=== PATIENT | female | born 1975 | race Caucasian/White ===

== ENCOUNTER 2016-12-18 13:46 | Emergency (ER) | payer BC ==
[2016-12-18 13:53] VITALS: BP 132/65
--- NOTE | 2016-12-18 14:09 | ER Document Report ---
ED Medical Screen (RME) - General Stated Complaint: RIGHT KNEE PAIN Notes: patient was getting out of her car four days ago with sudden onset knee pain, admits to a twisting motion getting out of her car. admits to knee swelling. hurts to walk on it, difficulty flexing past ninety degrees I have greeted and performed a rapid initial assessment of this patient. A comprehensive ED assessment and evaluation of the patient, analysis of test results and completion of the medical decision making process will be conducted by additional ED providers. TRAVEL OUTSIDE OF THE [place] IN LAST 30 DAYS: No - Related Data Allergies/Adverse Reactions: No Known Allergies Allergy (Verified 12/18/16 14:05) Past Medical History Neurological Medical History: Reports: Hx Migraine Renal/ Medical History: Reports: Hx Ovarian Cysts - fibroids Musculoskeltal Medical History: Denies Hx Arthritis, Reports Hx Musculoskeletal Deformity, Reports Hx Musculoskeletal Trauma - right shoulder injury with bursitis and tennis elbow Past Surgical History: Reports: Hx Gynecologic Surgery - uterine fibroids, Hx Oral Surgery, Hx Tonsillectomy - Immunizations Immunizations up to date: No Hx Diphtheria, Pertussis, Tetanus Vaccination: No Physical Exam - Vital signs Vitals: Temp Pulse Resp BP Pulse Ox 98.2 F 69 18 132/65 H 99 12/18/16 13:52 12/18/16 13:52 12/18/16 13:52 12/18/16 13:52 12/18/16 13:52 Course - Vital Signs Vital signs: Temp Pulse Resp BP Pulse Ox 98.2 F 69 18 132/65 H 99 12/18/16 13:52 12/18/16 13:52 12/18/16 13:52 12/18/16 13:52 12/18/16 13:52
[2016-12-18] MEDS ORDERED: IBUPROFEN 800 MG TABLET PO ONE (14:10)
--- NOTE | 2016-12-18 14:37 | ER Document Report ---
ED Extremity Problem, Lower - General Time seen by provider: 14:40 Mode of Arrival: Ambulatory Information source: Patient TRAVEL OUTSIDE OF THE [place] IN LAST 30 DAYS: No - HPI Patient complains to provider of: Injury, Pain Location: Knee - right Occurred: Other - see HPI notes <ORAL CADE - Last Filed: 12/18/16 14:58> <LISACHACHA ANN - Last Filed: 12/18/16 19:22> - General Chief Complaint: Knee Pain Stated Complaint: RIGHT KNEE PAIN Notes: Patient is a 41-year-old female presenting to emergency department with complaints of right knee pain. Patient states that she was getting out of the passenger side of her vehicle when she injured her right knee. Patient states she is unsure what happened that she possibly twisted her knee the right leg. Patient states that her pain is on the outer side of her knee and that she feels pressure going down her leg when she is walking. Patient has no known allergies. (ORAL CADE) - Related Data Allergies/Adverse Reactions: No Known Allergies Allergy (Verified 12/18/16 14:05) Past Medical History - General Information source: Patient - Social History Smoking Status: Current Every Day Smoker Cigarette use (# per day): No Chew tobacco use (# tins/day): No Frequency of alcohol use: None Drug Abuse: None Family History: Arthritis, CAD, DM, Hyperlipidemia, Hypertension Patient has suicidal ideation: No Patient has homicidal ideation: No Neurological Medical History: Reports: Hx Migraine Renal/ Medical History: Reports: Hx Ovarian Cysts - fibroids Musculoskeltal Medical History: Reports Hx Musculoskeletal Deformity, Reports Hx Musculoskeletal Trauma - right shoulder injury with bursitis and tennis elbow Past Surgical History: Reports: Hx Gynecologic Surgery - uterine fibroids, Hx Oral Surgery, Hx Tonsillectomy - Immunizations Immunizations up to date: No Hx Diphtheria, Pertussis, Tetanus Vaccination: No <ORAL CADE - Last Filed: 12/18/16 14:58> Review of Systems - Review of Systems Constitutional: No symptoms reported EENT: No symptoms reported Cardiovascular: No symptoms reported Respiratory: No symptoms reported Gastrointestinal: No symptoms reported Genitourinary: No symptoms reported Female Genitourinary: No symptoms reported Musculoskeletal: See HPI Skin: No symptoms reported Hematologic/Lymphatic: No symptoms reported Neurological/Psychological: No symptoms reported -: Yes All other systems reviewed and negative <ORAL CADE - Last Filed: 12/18/16 14:58> Physical Exam - Vital signs Interpretation: Normal - General General appearance: Appears well, Alert In distress: Mild - HEENT Head: Normocephalic, Atraumatic Eyes: Normal Pupils: PERRL Mucous membranes: Moist - Respiratory Respiratory status: No respiratory distress - Cardiovascular Rhythm: Regular - Abdominal Inspection: Normal - Back Back: Normal, Nontender - Extremities General upper extremity: Normal inspection, Normal ROM, Normal strength Knee: Tender - tenderness to palpation at the insertion of the vastus lateralis distally; patient has good range of motion, sensation, and strength - Neurological Neuro grossly intact: Yes Cognition: Normal Orientation: AAOx4 [place] Coma Scale Eye Opening: Spontaneous Eric Coma Scale Verbal: Oriented Eric Coma Scale Motor: Obeys Commands [place] Coma Scale Total: 15 Speech: Normal - Psychological Associated symptoms: Normal affect, Normal mood - Skin Skin Temperature: Warm Skin Moisture: Dry <ORAL CADE - Last Filed: 12/18/16 14:58> <CHACHA GONZALEZ - Last Filed: 12/18/16 19:22> - Vital signs Vitals: Temp Pulse Resp BP Pulse Ox 98.2 F 69 18 132/65 H 99 12/18/16 13:52 12/18/16 13:52 12/18/16 13:52 12/18/16 13:52 12/18/16 13:52 (ORAL CADE) (CHACHA GONZALEZ) Course <ORAL CADE - Last Filed: 12/18/16 14:58> - Diagnostic Test Radiology reviewed: Reports reviewed <CHACHA GONZALEZ - Last Filed: 12/18/16 19:22> - Re-evaluation Re-evalutation: 12/18/16 No acute findings on x-ray. Patient is able to ambulate. She is tender to palpation over her lateral vastus insertion. Full range of motion and strength. No trauma. No other complaints. Patient will be discharged home with an Deion wrap that she can apply herself. She has crutches at home. She does not want anything stronger than ibuprofen or naproxen for pain. Stable for discharge. Neurovascularly intact. Return if any worsening or concerning symptoms. (CHACHA GONZALEZ) - Vital Signs Vital signs: Temp Pulse Resp BP Pulse Ox 98.2 F 69 18 132/65 H 99 12/18/16 13:52 12/18/16 13:52 12/18/16 13:52 12/18/16 13:52 12/18/16 13:52 (ORAL CADE) (CHACHA GONZALEZ) Discharge <ORAL CADE - Last Filed: 12/18/16 14:58> <CHACHA GONZALEZ - Last Filed: 12/18/16 19:22> - Discharge Clinical Impression: Strain of right knee Qualifiers: Encounter type: initial encounter Qualified Code(s): S86.911A - Strain of unspecified muscle(s) and tendon(s) at lower leg level, right leg, initial encounter Condition: Stable Disposition: HOME, SELF-CARE Instructions: Sprained Knee ([facility]), Use of Crutches ([facility]) Prescriptions: Naproxen [Naprosyn 250 mg Tablet] 250 mg PO DAILY PRN #20 tablet PRN Reason: Forms: Return to Work Scribe Attestation: 12/18/16 19:22 I personally performed the services described in the documentation, reviewed and edited the documentation which was dictated to the scribe in my presence, and it accurately records my words and actions. (CHACHA GONZALEZ) Scribe Documentation - Scribe Written by Scribe:: Oral Cade 15:00 12/18/16 acting as scribe for :: Lisa <ORAL CADE - Last Filed: 12/18/16 14:58>
== END 2016-12-18 15:48 | disposition home or self-care (01) ==
LOC: ER 13:46
DX: S86.911A Strain of unspecified muscle(s) and tendon(s) at lower leg level, right leg, initial encounter (principal); M25.561 Pain in right knee; X58.XXXA Exposure to other specified factors, initial encounter; Y93.89 Activity, other specified; F17.200 Nicotine dependence, unspecified, uncomplicated
CPT/HCPCS: 99283

== ENCOUNTER 2017-08-10 12:41 | Emergency (ER) | payer BC ==
--- NOTE | 2017-08-10 13:23 | ER Document Report ---
ED Medical Screen (RME) - General Chief Complaint: Abdominal Pain Stated Complaint: ABDOMINAL PAIN,NAUSEA,VAGINAL DISCHARGE Time Seen by Provider: 08/10/17 13:22 Notes: Patient is complaining of abdominal pain in the center of her abdomen that started yesterday. It is worse today. She is also noted a light pink discharge that started last night and is worse today. Patient says that she has had similar symptoms previously secondary to uterine fibroids. She has had 3 surgical procedures to remove fibroids and is told that she has other fibroids in her uterus. She has been nauseated but not vomiting. No diarrhea. No UTI symptoms. No fever. TRAVEL OUTSIDE OF THE [place] IN LAST 30 DAYS: No - Related Data Allergies/Adverse Reactions: No Known Allergies Allergy (Verified 12/18/16 14:05) Past Medical History - Social History Chew tobacco use (# tins/day): No Frequency of alcohol use: None Drug Abuse: None Neurological Medical History: Reports: Hx Migraine Renal/ Medical History: Reports: Hx Ovarian Cysts - fibroids. Denies: Hx Peritoneal Dialysis Musculoskeltal Medical History: Denies Hx Arthritis, Reports Hx Musculoskeletal Deformity, Reports Hx Musculoskeletal Trauma - right shoulder injury with bursitis and tennis elbow Past Surgical History: Reports: Hx Gynecologic Surgery - uterine fibroids, Hx Oral Surgery, Hx Tonsillectomy - Immunizations Immunizations up to date: No Hx Diphtheria, Pertussis, Tetanus Vaccination: No History of Influenza Vaccine for 08/2017 - 01/2018 Season: No Physical Exam - Vital signs Vitals: Pulse 16 L 08/10/17 12:43 Course - Vital Signs Vital signs: Temp Pulse Resp BP Pulse Ox 98.6 F 75 16 134/82 H 99 08/10/17 12:44 08/10/17 12:44 08/10/17 12:44 08/10/17 12:44 08/10/17 12:44
[2017-08-10 14:01] LABS: ABSOLUTE EOSINOPHILS # (AUTO) 0.2 10^3/uL (0.0-0.6); ABSOLUTE MONOCYTES (AUTO) 0.3 10^3/uL (0.1-1.4); ABSOLUTE NEUT (AUTO) 4.7 10^3/uL (1.7-8.2); BASOPHILS % (AUTO) 0.5 % (0-2); EOSINOPHILS % (AUTO) 2.6 % (0-6); HEMATOCRIT 36.4 % (36.0-47.0); HEMOGLOBIN 12.1 g/dL (12.0-15.5); HGB HCT DIFFERENCE -0.1; LYMPHOCYTES % (AUTO) 27.2 % (13-45); MEAN CORPUSCULAR HEMOGLOBIN 21.5 pg (27.0-33.4); MEAN CORPUSCULAR HGB CONC 33.2 g/dL (32.0-36.0); MEAN CORPUSCULAR VOLUME 65 fl (80-97); MONOCYTES % (AUTO) 4.8 % (3-13); RED BLOOD COUNT 5.61 10^6/uL (3.72-5.28); RED CELL DISTRIBUTION WIDTH 15.2 % (11.5-14.0); SEGMENTED NEUTROPHILS % (AUTO) 64.9 % (42-78); WHITE BLOOD COUNT 7.2 10^3/uL (4.0-10.5)
--- NOTE | 2017-08-10 14:07 | ER Document Report ---
ED GI/ - General Chief Complaint: Abdominal Pain Stated Complaint: ABDOMINAL PAIN,NAUSEA,VAGINAL DISCHARGE Time Seen by Provider: 08/10/17 13:22 Mode of Arrival: Ambulatory Information source: Patient TRAVEL OUTSIDE OF THE [place] IN LAST 30 DAYS: No - HPI Patient complains to provider of: Abdominal pain Onset: Yesterday - AFTERNOON Quality of pain: Other - "HURTS" Severity at maximum: Moderate Severity in ED: Mild Context: Other - KNOWN H/O FIBROIDS. denies: Bad food, Lifting, Out of the country travel, , Recent trauma Location: Other - MID-ABDOMEN, SYMMETRICAL Vaginal bleeding (Compared to normal period): Spotting - PINKISH D/C Menstrual period history: Irregular Sexual history: Active Associated symptoms: None Exacerbated by: Denies Relieved by: Denies Similar symptoms previously: Yes - FIBROIDS?? Recently seen / treated by doctor: No - Related Data Allergies/Adverse Reactions: No Known Allergies Allergy (Verified 12/18/16 14:05) Past Medical History - General Information source: Patient - Social History Smoking Status: Current Every Day Smoker Chew tobacco use (# tins/day): No Frequency of alcohol use: None Drug Abuse: None Family History: Arthritis, CAD, DM, Hyperlipidemia, Hypertension Patient has suicidal ideation: No Patient has homicidal ideation: No - Past Medical History Cardiac Medical History: Reports: None Pulmonary Medical History: Reports: None EENT Medical History: Reports: None Neurological Medical History: Reports: Hx Migraine Endocrine Medical History: Reports: None Renal/ Medical History: Reports: Hx Ovarian Cysts - fibroids. Denies: Hx Peritoneal Dialysis Malignancy Medical History: Reports: None GI Medical History: Reports: None Musculoskeltal Medical History: Denies Hx Arthritis, Reports Hx Musculoskeletal Deformity, Reports Hx Musculoskeletal Trauma - right shoulder injury with bursitis and tennis elbow Psychiatric Medical History: Reports: None Traumatic Medical History: Reports: None Past Surgical History: Reports: Hx Gynecologic Surgery - uterine fibroids, Hx Oral Surgery, Hx Tonsillectomy - Immunizations Immunizations up to date: No Hx Diphtheria, Pertussis, Tetanus Vaccination: No Review of Systems - Review of Systems Constitutional: No symptoms reported. denies: Chills, Fever EENT: No symptoms reported Cardiovascular: No symptoms reported Respiratory: No symptoms reported Gastrointestinal: Nausea Genitourinary: No symptoms reported Female Genitourinary: See HPI Musculoskeletal: No symptoms reported Skin: No symptoms reported Neurological/Psychological: No symptoms reported Physical Exam - Vital signs Vitals: Pulse 16 L 08/10/17 12:43 Interpretation: Normal. No: Hypotensive, Tachycardic, Tachypneic - General General appearance: Appears well, Alert In distress: None - HEENT Head: Normocephalic Eyes: Normal Conjunctiva: Normal Ears: Normal Nasal: Normal Mouth/Lips: Caries Mucous membranes: Normal Pharynx: Normal Neck: Normal - Respiratory Respiratory status: No respiratory distress - Cardiovascular Rhythm: Regular - Abdominal Inspection: Normal Distension: No distension Bowel sounds: Normal Tenderness: Tender - SLIGHT, WILLA-UMBILICAL - Genitourinary External exam: Normal Speculum exam: Normal, Cervix closed Vaginal bleeding: None Bimanuel exam: Cervical motion tender - MILDLY - Extremities General upper extremity: Normal inspection General lower extremity: Normal inspection - Neurological Neuro grossly intact: Yes Cognition: Normal Orientation: AAOx4 - Psychological Associated symptoms: Normal affect, Normal mood - Skin Skin Temperature: Warm Skin Moisture: Dry Skin Color: Normal Skin Turgor: Elastic Course - Vital Signs Vital signs: Temp Pulse Resp BP Pulse Ox 98.6 F 75 16 134/82 H 99 08/10/17 12:44 08/10/17 12:44 08/10/17 12:44 08/10/17 12:44 08/10/17 12:44 - Laboratory Result Diagrams: 08/10/17 13:40 08/10/17 13:40 Laboratory results interpreted by me: 08/10/17 08/10/17 13:30 13:40 RBC 5.61 H MCV 65 L MCH 21.5 L RDW 15.2 H Urine Blood SMALL H Discharge - Discharge Clinical Impression: Abdominal pain Qualifiers: Abdominal location: periumbilical Qualified Code(s): R10.33 - Periumbilical pain Uterine fibroid Qualifiers: Uterine leiomyoma location: unspecified location Qualified Code(s): D25.9 - Leiomyoma of uterus, unspecified Condition: Stable Disposition: HOME, SELF-CARE Instructions: Abdominal Pain ([facility]), Oral Narcotic Medication ([facility]) Additional Instructions: YOUR PAIN IS MOST LIKELY RELATED TO YOUR FIBROID TUMORS IN THE UTERUS. REST, DRINK PLENTY OF FLUIDS. YOU MAY TAKE NORCO FOR PAIN CONTROL IF NEEDED (OR TYLENOL FOR LESS SEVERE PAIN). FOLLOW UP WITH YOUR PRIMARY CARE PROVIDER OR FELT CARBON[facility]ER IF NOT IMPROVED IN 48- 72 HOURS. Prescriptions: Hydrocodone/Acetaminophen [[place] 5-325 mg Tablet] 1 tab PO Q4HP PRN #14 tablet PRN Reason: For Pain
[2017-08-10 14:10] LABS: APPEARANCE,URINE SLIGHTLY-CLOUDY; BILIRUBIN,URINE NEGATIVE (NEGATIVE); GLUCOSE, URINE NEGATIVE (NEGATIVE); KETONES,URINE NEGATIVE (NEGATIVE); LEUKOCYTE ESTERASE,URINE NEGATIVE (NEGATIVE); NITRITE,URINE NEGATIVE (NEGATIVE); PROTEIN,URINE NEGATIVE (NEGATIVE); URINE SPECIFIC GRAVITY 1.017; UROBILINOGEN,URINE NEGATIVE mg/dL (<2.0)
[2017-08-10 14:22] LABS: ALANINE AMINOTRANSFERASE 48 U/L (9-52); ALBUMIN 4.8 g/dL (3.5-5.0); ALKALINE PHOSPHATASE 60 U/L (38-126); ANION GAP 10 (5-19); ASPARTATE AMINO TRANSFERASE 25 U/L (14-36); BILIRUBIN,DIRECT 0.4 mg/dL (0.0-0.4); BLOOD UREA NITROGEN 13 mg/dL (7-20); CALCIUM 9.9 mg/dL (8.4-10.2); CARBON DIOXIDE 26 mmol/L (22-30); CHLORIDE 104 mmol/L (98-107); CREATININE RESULT 0.77 mg/dL (0.52-1.25); GLUCOSE 84 mg/dL (75-110); LIPASE 56.3 U/L (23-300); POTASSIUM 4.2 mmol/L (3.6-5.0); SODIUM 140.4 mmol/L (137-145); TOTAL PROTEIN 7.4 g/dL (6.3-8.2)
[2017-08-10 14:38] LABS: OVALOCYTES SLIGHT; POLYCHROMASIA SLIGHT; TEAR DROP CELLS SLIGHT
[2017-08-10 14:39] LABS: ANISOCYTOSIS SLIGHT; MICROCYTOSIS 3+
[2017-08-10 17:58] LABS: CHLAM PCR NOT DETECTED (NOT DETECT)
[2017-08-10 19:03] VITALS: BP 121/70
== END 2017-08-10 19:03 | disposition home or self-care (01) ==
LOC: ER 12:41
DX: D25.9 Leiomyoma of uterus, unspecified (principal); R10.33 Periumbilical pain; R11.0 Nausea; K02.9 Dental caries, unspecified; F17.200 Nicotine dependence, unspecified, uncomplicated; Z98.890 Other specified postprocedural states
CPT/HCPCS: 36415; 80053; 81001; 83690; 84702; 85025; 87210; 87491; 87591; 99284

== ENCOUNTER → 2017-10-20 | Outpatient (CLI) | payer BC ==
--- NOTE | 2017-10-20 14:37 | RADIOLOGY REPORT (SQ) ---
EXAM DESCRIPTION: CT ABD/PELVIS WITH IV ORAL COMPLETED DATE/TIME: 10/20/2017 1:51 pm REASON FOR STUDY: UNSPECIFIED OVARIAN CYST, LT SIDE (N83.202) N83.202 UNSPECIFIED OVARIAN CYST, LEF T SIDE COMPARISON: 04/21/2013 TECHNIQUE: CT scan of the abdomen and pelvis performed using helical scanning technique with dynamic intravenous contrast injection. No oral contrast. Images reviewed with lung, soft tissue, and bone windows. Reconstructed coronal and sagittal MPR images reviewed. Delayed images for evaluation of the urinary system also acquired. All images stored on PACS. All CT scanners at this facility use dose modulation, iterative reconstruction, and/or weight based d osing when appropriate to reduce radiation dose to as low as reasonably achievable (ALARA). [facility]: Dose Right [facility]: CareDose [facility]: Dose Right [facility]: Teradose 4D [facility]: Artillery CONTRAST TYPE AND DOSE: contrast/concentration: Isovue 370.00 mg/ml; Total Contrast Delivered: 81.0 ml; Total Saline Delivered: 68.0 ml RENAL FUNCTION: None required. The patient is less than 50 years old. RADIATION DOSE: CT Rad equipment meets quality standard of care and radiation dose reduction techniq ues were employed. CTDIvol: 7.5 - 8.6 mGy. DLP: 861 mGy-cm.. LIMITATIONS: None. FINDINGS: LOWER CHEST: No significant findings. No nodules or infiltrates. LIVER: Normal size. No masses. No dilated ducts. SPLEEN: Normal size. No focal lesions. PANCREAS: No masses. No significant calcifications. No adjacent inflammation or peripancreatic fluid collections. Pancreatic duct not dilated. GALLBLADDER: No identified stones by CT criteria. No inflammatory changes to suggest cholecystitis. ADRENAL GLANDS: No significant masses or asymmetry. RIGHT KIDNEY AND URETER: No solid masses. No significant calcifications. No hydronephrosis or hyd roureter. LEFT KIDNEY AND URETER: No solid masses. No significant calcifications. No hydronephrosis or hydr oureter. AORTA AND VESSELS: No aneurysm. No dissection. Renal arteries, SMA, celiac without stenosis. RETROPERITONEUM: No retroperitoneal adenopathy, hemorrhage or masses. BOWEL AND PERITONEAL CAVITY: No masses or inflammatory changes. No free fluid or peritoneal masses. APPENDIX: Normal. PELVIS: Uterine fibroids, stable. 2 cm cyst right ovary. ABDOMINAL WALL: No masses. No hernias. BONES: No significant or acute findings. OTHER: No other significant finding. IMPRESSION: Uterine fibroids. No significant change. No acute findings. TECHNICAL DOCUMENTATION: JOB ID: [id number] Quality ID # [id number]: Final reports with documentation of one or more dose reduction techniques (e.g., Au tomated exposure control, adjustment of the mA and/or kV according to patient size, use of iterative reconstruction technique) 2010 [employer]- All Rights Reserved
== END ==
LOC: RAD 13:17
PROVIDERS: ATTEND Specialist
DX: N83.202 Unspecified ovarian cyst, left side (principal); N83.201 Unspecified ovarian cyst, right side; D25.9 Leiomyoma of uterus, unspecified
CPT/HCPCS: 74177

== ENCOUNTER 2017-12-29 05:19 | Day surgery (SDC) | payer BC ==
[2017-12-27 11:21] LABS: APPEARANCE,URINE CLEAR; BILIRUBIN,URINE NEGATIVE (NEGATIVE); COLOR,URINE STRAW; GLUCOSE, URINE NEGATIVE (NEGATIVE); KETONES,URINE NEGATIVE (NEGATIVE); LEUKOCYTE ESTERASE,URINE NEGATIVE (NEGATIVE); NITRITE,URINE NEGATIVE (NEGATIVE); PROTEIN,URINE NEGATIVE (NEGATIVE); URINE SPECIFIC GRAVITY 1.004; UROBILINOGEN,URINE NEGATIVE mg/dL (<2.0)
[2017-12-27 11:53] LABS: HEMATOCRIT 38.1 % (36.0-47.0); MEAN CORPUSCULAR HEMOGLOBIN 20.5 pg (27.0-33.4); MEAN CORPUSCULAR HGB CONC 31.5 g/dL (32.0-36.0); MEAN CORPUSCULAR VOLUME 65 fl (80-97); PLATELET COUNT 388 10^3/uL (150-450); RED BLOOD COUNT 5.84 10^6/uL (3.72-5.28); RED CELL DISTRIBUTION WIDTH 14.5 % (11.5-14.0); WHITE BLOOD COUNT 7.4 10^3/uL (4.0-10.5)
[2017-12-27 12:10] LABS: ANION GAP 12 (5-19); BLOOD UREA NITROGEN 13 mg/dL (7-20); CALCIUM 9.7 mg/dL (8.4-10.2); CARBON DIOXIDE 26 mmol/L (22-30); CHLORIDE 105 mmol/L (98-107); GLUCOSE 79 mg/dL (75-110); POTASSIUM 4.9 mmol/L (3.6-5.0); SODIUM 142.5 mmol/L (137-145)
--- NOTE | 2017-12-27 13:36 | EKG REPORT ---
SEVERITY:- NORMAL ECG - SINUS RHYTHM : Confirmed by: Reynold Guzmán MD 27-Dec-2017 13:35:46
--- NOTE | 2017-12-27 15:52 | RADIOLOGY REPORT (SQ) ---
EXAM DESCRIPTION: CHEST PA/LATERAL COMPLETED DATE/TIME: 12/27/2017 12:17 pm REASON FOR STUDY: PRE OP COMPARISON: 07/16/2016 EXAM PARAMETERS: NUMBER OF VIEWS: two views TECHNIQUE: Digital Frontal and Lateral radiographic views of the chest acquired. RADIATION DOSE: NA LIMITATIONS: none FINDINGS: LUNGS AND PLEURA: No opacities, masses or pneumothorax. No pleural effusion. MEDIASTINUM AND HILAR STRUCTURES: No masses or contour abnormalities. HEART AND VASCULAR STRUCTURES: Heart normal size. No evidence for failure. BONES: No acute findings. HARDWARE: None in the chest. OTHER: No other significant finding. IMPRESSION: NO SIGNIFICANT RADIOGRAPHIC FINDING IN THE CHEST. TECHNICAL DOCUMENTATION: JOB ID: [id number] [employer]- All Rights Reserved
[~2017-12-29 05:19] MED LIST: CEFAZOLIN 1 GM/D5W RTU 1 GM/50 ML RTUPB IV PRN; LACTATED RINGERS 1000 ML IV PRN; LIDOCAINE 0.5% INJ-PF (5 MG/ML) 50 ML SDV SUBCUT PRN
[2017-12-29] MEDS ORDERED: ALBUTEROL SULFATE 0.083% NEB 2.5 MG/3 ML AMPUL NEB ONE (06:14)
[2017-12-29] MEDS ORDERED: MIDAZOLAM 2 MG/2 ML INJ ONE (07:08)
[2017-12-29] MEDS ORDERED: FENTANYL CITRATE INJ/PF 250 MCG/5 ML AMPULE ONE (07:09)
[2017-12-29] MEDS ORDERED: ACETAMINOPHEN 100 ML IV ONE (07:09)
[2017-12-29] MEDS ORDERED: PROPOFOL INJ 200 MG/20 ML VIAL IV ONE (07:09)
[2017-12-29] MEDS ORDERED: LIDOCAINE 1%/EPINEPHRINE INJ 20 ML VIAL ONE (07:19)
[2017-12-29] MEDS ORDERED: MORPHINE SULFATE 10 MG/ML INJ IV PRN (08:01)
[2017-12-29] MEDS ORDERED: DIPHENHYDRAMINE HCL 50 MG/ML VIAL IV PRN (08:01)
[2017-12-29] MEDS ORDERED: MEPERIDINE HCL/PF INJ 25 MG/1 ML DISP.SYRIN IV PRN (08:01)
[2017-12-29] MEDS ORDERED: FENTANYL CITRATE INJ/PF 100 MCG/2 ML AMPUL IV PRN ×3 (08:01)
[2017-12-29] MEDS ORDERED: OXYCODONE-ACETAMINOPHEN 5-325 MG TABLET PO PRN ×3 (08:01→09:29)
[2017-12-29] MEDS ORDERED: PROMETHAZINE HCL INJ 25 MG/1 ML VIAL IV PRN ×2 (08:01)
[2017-12-29] MEDS ORDERED: MORPHINE SULFATE 10 MG/ML INJ INJ PRN ×2 (09:30→09:31)
[2017-12-29] MEDS ORDERED: MORPHINE SULFATE 10 MG/ML INJ IM PRN (09:31)
[2017-12-29] MEDS ORDERED: PROMETHAZINE HCL INJ 25 MG/1 ML VIAL IM PRN (09:32)
--- NOTE | 2017-12-29 10:17 | RADIOLOGY REPORT (SQ) ---
EXAM DESCRIPTION: CHEST SINGLE VIEW COMPLETED DATE/TIME: 12/29/2017 9:29 am REASON FOR STUDY: RULE OUT FOREIGN BODY COMPARISON: Two-view chest 12/27/2017 EXAM PARAMETERS: NUMBER OF VIEWS: One view. TECHNIQUE: Single frontal radiographic view of the chest acquired. RADIATION DOSE: NA LIMITATIONS: None. FINDINGS: LUNGS AND PLEURA: Left retrocardiac atelectasis. Lungs otherwise well inflated and grossl y clear. No pleural effusion. No pneumothorax. MEDIASTINUM AND HILAR STRUCTURES: No masses. Contour normal. HEART AND VASCULAR STRUCTURES: Heart normal in size. Normal vasculature. BONES: No acute findings. HARDWARE: Endotracheal tube tip 3 to 4 cm above the jaylan. OTHER: Diffuse gaseous distention of the stomach. No aspirated tooth fragment is seen over the central airways. IMPRESSION: No aspirated tooth fragment is seen over the central airways in the field of view Endotracheal tube tip in the midtrachea Diffuse gaseous distention of the stomach Left retrocardiac air bronchograms from atelectasis. Pneumonia could not entirely be excluded TECHNICAL DOCUMENTATION: JOB ID: [id number]- All Rights Reserved
[2017-12-29] MEDS: CEFAZOLIN 1 GM/D5W RTU 1 GM/50 ML RTUPB IV SCH ×2 (14:10→17:57)
[2017-12-29] MEDS: IBUPROFEN 800 MG TABLET PO SCH ×2 (14:11→22:51)
[2017-12-29] MEDS ORDERED: SUCCINYLCHOLINE CHLORIDE INJ 200 MG/10 ML VIAL ONE (15:47)
[2017-12-29] MEDS ORDERED: KETOROLAC TROMETHAMINE 60 MG/2 ML SDV ONE (15:47)
[2017-12-29] MEDS ORDERED: LIDOCAINE 2% INJ-PF (20 MG/ML) 2 ML AMPUL ONE (15:47)
[2017-12-29] MEDS ORDERED: ROCURONIUM BROMIDE INJ 50 MG/5 ML VIAL IV ONE (15:47)
[2017-12-29] MEDS ORDERED: DEXAMETHASONE SOD PHOSPHATE INJ 4 MG/1 ML VIAL ONE (15:47)
[2017-12-29] MEDS ORDERED: ONDANSETRON HCL INJ/PF 4 MG/2 ML SDV ONE (15:47)
--- NOTE | 2017-12-29 15:57 | OPERATIVE REPORT E ---
Operative Report NAME: MINNIE FAIRCHILD : 1975 AGE: 42Y DATE OF SURGERY: 12/29/2017 ROOM: 218 PREOPERATIVE DIAGNOSIS: Uterine leiomyoma. POSTOPERATIVE DIAGNOSIS: Uterine leiomyoma. OPERATION: Total vaginal hysterectomy with Gay culdoplasty. SURGEON: HOMERO CORNELL M.D. COMPLICATIONS: None. ANESTHESIA: General endotracheal. FINDINGS: Multi-fibroid uterus. Ovaries were palpated out of the operative field was normal. No enterocele formation was appreciated. INDICATIONS FOR PROCEDURE: The patient had symptomatic uterine leiomyoma as well as abnormal uterine bleeding unresponsive to usual outpatient management and desired attempt at definitive therapy. vaginal approach. The laparoscopic instrumentation was available should it need to be converted or assisted. The usual risks of bleeding, infection, anesthesia, damage to organs or tissue were discussed and the patient understood. PROCEDURE: The patient was taken to the operating room and placed in modified lithotomy position after adequate anesthesia was ascertained, prepped and draped in the usual manner for a vaginal hysterectomy. EUA was performed and bladder was drained. A surgical timeout was performed. Posterior colpotomy incision was made without difficulty. The uterosacral ligaments were crossclamped, cut, suture ligated and held. Using the LigaSure Advance device, advancement of the anterior vagina after the cervix had been circumscribed was performed. The vessels were cauterized up to the mid portion of the broad ligament. The anterior cul-de-sac had not been entered due to entry in the uterus proper. This necessitated back and ascending further over top of an anterior fibroid that was present and complicating the anatomy. The cervix was cord out encountering an endometrial polyp and some mucosal fibroids. This was excised and handed off the operative field. The fundus was then brought into the operative field after was identified , suture ligated and free tied. chromic catgut used throughout the case/ A subserous fibroid was encountered and brought off the operative field. Uterus was handed off the operative field and the pedicles were identified. A small bleeder was noted on the right side was encountered and suture ligated uneventfully. The vagina was then closed in an anterior/posterior fashion with chromic catgut. A small anterior right introital laceration that was mucosal in nature was oversewn with chromic catgut and retraction due to the narrow nature of the vagina. At the completion of procedure, all sponge and needle counts were correct. DICTATING PHYSICIAN: HOMERO CORNELL M.D. [id number] PHY#: [id number] ID: [id number] JOB#: [id number] ACCT: [id number] cc:HOMERO CORNELL M.D. >
[2017-12-30] MEDS: IBUPROFEN 800 MG TABLET PO SCH (05:17)
[2017-12-30 07:05] LABS: HEMATOCRIT 28.9 % (36.0-47.0); MEAN CORPUSCULAR HEMOGLOBIN 20.3 pg (27.0-33.4); MEAN CORPUSCULAR HGB CONC 31.2 g/dL (32.0-36.0); MEAN CORPUSCULAR VOLUME 65 fl (80-97); PLATELET COUNT 301 10^3/uL (150-450); RED BLOOD COUNT 4.45 10^6/uL (3.72-5.28); RED CELL DISTRIBUTION WIDTH 14.4 % (11.5-14.0)
[2017-12-30 07:58] LABS: WHITE BLOOD COUNT 19.6 10^3/uL (4.0-10.5)
[2017-12-30 08:43] VITALS: BP 117/39
--- NOTE | 2017-12-30 12:03 | DISCHARGE SUMMARY E ---
Discharge Summary NAME: MINNIE FAIRCHILD : 1975 AGE: 42Y ADMITTED: 12/29/2017 DISCHARGED: 12/30/2017 HOSPITAL COURSE: This is a 42-year-old female admitted for same-day admission for a total vaginal hysterectomy for fibroids. The patient underwent same-day admission, total vaginal hysterectomy with Gay culdoplasty. The uterus was clinically a fibroid uterus with a submucosal fibroid or polyp present. The patient did well. Estimated blood loss approximately 150 mL. Ambulatory, regular diet. Same-day admission. Discharge in 24 hours. No evidence of DVT. Pathology pending. FINAL IMPRESSION: Uterine leiomyoma, pathology pending. PROCEDURE: Total vaginal hysterectomy with Gay culdoplasty. DICTATING PHYSICIAN: HOMERO CORNELL M.D. [id number] PHY#: [id number] ID: [id number] JOB#: [id number] ACCT: [id number] cc:HOMERO CORNELL M.D. >
== END 2017-12-30 09:30 | disposition home or self-care (01) ==
LOC: OROUT 05:19 → 2S 10:41 → OROUT 12-30 09:30
PROVIDERS: ATTEND Specialist
PROC: 0UT97ZZ Resection of Uterus, Via Natural or Artificial Opening (ICD-10-PCS; principal; 2017-12-30)
DX: D25.2 Subserosal leiomyoma of uterus (principal); D25.0 Submucous leiomyoma of uterus; N84.0 Polyp of corpus uteri; N93.9 Abnormal uterine and vaginal bleeding, unspecified; G43.909 Migraine, unspecified, not intractable, without status migrainosus; F17.210 Nicotine dependence, cigarettes, uncomplicated; N80.0 Endometriosis of uterus
CPT/HCPCS: 58260; 93005; 86900; 86901; 36415 ×2; 86850; 85027 ×2; 81025; 80048; 81001; 88307 ×2; 71046; 71045; 94799; 93010; J2250; J0690; J3490 ×3; J1100; J1885; J3010; J0330; J2405; J2704; J0131

== ENCOUNTER 2018-01-04 17:04 | Inpatient (IN) | payer BC ==
[2018-01-04] MEDS ORDERED: ACETAMINOPHEN 325 MG TABLET PO ONE (18:19)
[2018-01-04] MEDS ORDERED: NORMAL SALINE 1000 ML 1,000 ML IV ONE (18:19)
--- NOTE | 2018-01-04 18:23 | ER Document Report ---
ED Medical Screen (RME) - General Chief Complaint: abdominal pain, fever, dizzy Stated Complaint: DIZZY, FEVER, ABDOMINAL PAIN Time Seen by Provider: 01/04/18 18:19 Mode of Arrival: Wheelchair Information source: Patient Notes: 42-year-old female partial hysterectomy with 5 tumors removed presents with complaints of fever dizziness body aches. Patient admits to right lower quadrant abdominal pain I have greeted and performed a rapid initial assessment of this patient. A comprehensive ED assessment and evaluation of the patient, analysis of test results and completion of the medical decision making process will be conducted by additional ED providers. PHYSICAL EXAMINATION: GENERAL: ill appearing mild distress HEAD: Atraumatic, normocephalic. EYES: Pupils equal round extraocular movements intact, conjunctiva are normal. ENT: Nares patent NECK: Normal range of motion LUNGS: No respiratory distress Musculoskeletal: Normal range of motion NEUROLOGICAL: Normal speech, normal gait. PSYCH: Normal mood, normal affect. SKIN: Warm, Dry, normal turgor, no rashes or lesions noted. TRAVEL OUTSIDE OF THE [place] IN LAST 30 DAYS: No - Related Data Allergies/Adverse Reactions: No Known Allergies Allergy (Verified 12/27/17 10:28) Past Medical History - Social History Chew tobacco use (# tins/day): No Frequency of alcohol use: None Drug Abuse: None - Past Medical History Cardiac Medical History: Denies: Hx Coronary Artery Disease, Hx Heart Attack, Hx Hypertension Pulmonary Medical History: Denies: Hx Asthma, Hx Bronchitis, Hx COPD, Hx Pneumonia Neurological Medical History: Reports: Hx Migraine. Denies: Hx Cerebrovascular Accident, Hx Seizures Renal/ Medical History: Reports: Hx Ovarian Cysts - fibroids. Denies: Hx Peritoneal Dialysis Musculoskeltal Medical History: Denies Hx Arthritis, Reports Hx Musculoskeletal Deformity, Reports Hx Musculoskeletal Trauma - right shoulder injury with bursitis and tennis elbow Past Surgical History: Reports: Hx Gynecologic Surgery - uterine fibroids, Hx Oral Surgery, Hx Tonsillectomy - Immunizations Immunizations up to date: No Hx Diphtheria, Pertussis, Tetanus Vaccination: Yes History of Influenza Vaccine for 08/2017 - 01/2018 Season: No Physical Exam - Vital signs Vitals: Temp Pulse Resp BP Pulse Ox 103.1 F H 120 H 18 110/42 L 97 01/04/18 17:12 01/04/18 17:12 01/04/18 17:12 01/04/18 17:12 01/04/18 17:12 Course - Vital Signs Vital signs: Temp Pulse Resp BP Pulse Ox 103.1 F H 120 H 18 110/42 L 97 01/04/18 17:12 01/04/18 17:12 01/04/18 17:12 01/04/18 17:12 01/04/18 17:12
[2018-01-04 19:08] LABS: VENOUS BLOOD BASE EXCESS -0.2 mmol/L; VENOUS BLOOD HCO3 24.1 mmol/L (20-32); VENOUS BLOOD PCO2 38.5 mmHg (35-63); VENOUS BLOOD PH 7.42 (7.30-7.42)
[2018-01-04 19:19] LABS: HEMATOCRIT 32.3 % (36.0-47.0); HEMOGLOBIN 10.2 g/dL (12.0-15.5); MEAN CORPUSCULAR HEMOGLOBIN 20.2 pg (27.0-33.4); MEAN CORPUSCULAR HGB CONC 31.6 g/dL (32.0-36.0); PLATELET COUNT 371 10^3/uL (150-450); RED BLOOD COUNT 5.06 10^6/uL (3.72-5.28); RED CELL DISTRIBUTION WIDTH 14.4 % (11.5-14.0); WHITE BLOOD COUNT 22.7 10^3/uL (4.0-10.5)
[2018-01-04 19:20] LABS: ALANINE AMINOTRANSFERASE 30 U/L (9-52); ALKALINE PHOSPHATASE 85 U/L (38-126); ANION GAP 9 (5-19); ASPARTATE AMINO TRANSFERASE 19 U/L (14-36); BILIRUBIN,DIRECT 0.8 mg/dL (0.0-0.4); BILIRUBIN,TOTAL 1.5 mg/dL (0.2-1.3); BLOOD UREA NITROGEN 10 mg/dL (7-20); CARBON DIOXIDE 22 mmol/L (22-30); CHLORIDE 102 mmol/L (98-107); GLUCOSE 131 mg/dL (75-110); POTASSIUM 4.1 mmol/L (3.6-5.0); SODIUM 133.4 mmol/L (137-145); TOTAL PROTEIN 6.4 g/dL (6.3-8.2)
--- NOTE | 2018-01-04 19:30 | ER Document Report ---
ED General - General Chief Complaint: abdominal pain, fever, dizzy Stated Complaint: DIZZY, FEVER, ABDOMINAL PAIN Time Seen by Provider: 01/04/18 18:19 Mode of Arrival: Wheelchair Notes: Patient is a 42 year old female that comes emergency department for chief complaint of fever and pain along with nausea over the past 2 days. Patient is 6 days postop transvaginal partial hysterectomy by Dr. West at this facility, she states that today she worsens significantly, has developed pain in her right lower abdomen, reports fevers and chills. Found to have an initial temperature of 103.1F at triage. Patient states the hysterectomy was due to fibroids, she smokes, she denies any daily medications other than the Percocet and ibuprofen postop, she denies any medical history otherwise. She has not had the influenza vaccine. She denies cough, congestion, sore throat, dysuria, flank pain. She states bleeding has only been slight. TRAVEL OUTSIDE OF THE [place] IN LAST 30 DAYS: No - Related Data Allergies/Adverse Reactions: No Known Allergies Allergy (Verified 12/27/17 10:28) Past Medical History - General Information source: Patient - Social History Smoking Status: Current Every Day Smoker Chew tobacco use (# tins/day): No Frequency of alcohol use: None Drug Abuse: None Family History: Arthritis, CAD, DM, Hyperlipidemia, Hypertension Patient has suicidal ideation: No Patient has homicidal ideation: No - Past Medical History Cardiac Medical History: Denies: Hx Coronary Artery Disease, Hx Heart Attack, Hx Hypertension Pulmonary Medical History: Denies: Hx Asthma, Hx Bronchitis, Hx COPD, Hx Pneumonia Neurological Medical History: Reports: Hx Migraine. Denies: Hx Cerebrovascular Accident, Hx Seizures Renal/ Medical History: Reports: Hx Ovarian Cysts - fibroids. Denies: Hx Peritoneal Dialysis Musculoskeltal Medical History: Denies Hx Arthritis, Reports Hx Musculoskeletal Deformity, Reports Hx Musculoskeletal Trauma - right shoulder injury with bursitis and tennis elbow Past Surgical History: Reports: Hx Gynecologic Surgery - uterine fibroids, Hx Hysterectomy, Hx Oral Surgery, Hx Tonsillectomy - Immunizations Immunizations up to date: No Hx Diphtheria, Pertussis, Tetanus Vaccination: Yes Review of Systems - Review of Systems Constitutional: See HPI EENT: No symptoms reported Cardiovascular: No symptoms reported Respiratory: No symptoms reported Gastrointestinal: See HPI Genitourinary: No symptoms reported Female Genitourinary: See HPI Musculoskeletal: No symptoms reported Skin: No symptoms reported Hematologic/Lymphatic: No symptoms reported Neurological/Psychological: No symptoms reported Physical Exam - Vital signs Vitals: Temp Pulse Resp BP Pulse Ox 103.1 F H 120 H 18 110/42 L 97 01/04/18 17:12 01/04/18 17:12 01/04/18 17:12 01/04/18 17:12 01/04/18 17:12 - General General appearance: Other - Patient flushed and mildly uncomfortable appearing but she does not appear to be in distress - HEENT Head: Normocephalic, Atraumatic Eyes: Normal Eyelashes: Normal Pupils: PERRL Sinus: Normal Nasal: Normal Mouth/Lips: Normal Mucous membranes: Normal - Respiratory Respiratory status: No respiratory distress. No: Labored Breath sounds: Normal. No: Decreased air movement, Nonproductive cough, Wheezing - Cardiovascular Rhythm: Regular, Tachycardia Heart sounds: Normal auscultation, S1 appreciated, S2 appreciated Murmur: No Normal capillary refill: Yes - Abdominal Tenderness: Tender - There is tenderness in the mid to lower abdomen generally, slightly worse on the right, no guarding, focal rigidity, rebound tenderness - Back Back: Normal, Nontender. No: Tender - Extremities General upper extremity: Normal inspection, Nontender, Normal strength, Normal temperature General lower extremity: Normal inspection, Nontender, Normal strength, Normal temperature. No: Edema - Neurological Neuro grossly intact: Yes Cognition: Normal Orientation: AAOx4 Eric Coma Scale Eye Opening: Spontaneous Eric Coma Scale Verbal: Oriented [place] Coma Scale Motor: Obeys Commands [place] Coma Scale Total: 15 Speech: Normal Motor strength normal: LUE, RUE, LLE, RLE Sensory: Normal - Skin Skin Temperature: Warm Skin Moisture: Dry Skin Color: Normal Course - Re-evaluation Re-evalutation: Patient febrile, tachycardic, however her blood pressure stable, she is well- appearing on exam, her abdominal exam shows mild tenderness but does not suggest focal tenderness or an acute abdomen. Influenza negative, CBC shows marked leukocytosis at greater than 20,000 with elevated neutrophils. Chemistry generally unremarkable. Urine shows some evidence of infection, culture was placed. Got blood cultures were obtained, lactic acid is not elevated. CAT scan was performed to rule out abscess, does not show any overt obvious post surgical abnormality including perforation or abscess. Patient was given Zosyn antibiotic. Called and spoke with Dr. West, patient's surgeon, he states he will come evaluate the patient and likely admit her to the hospital. - Vital Signs Vital signs: Temp Pulse Resp BP Pulse Ox 99.0 F 89 14 107/45 L 97 01/05/18 02:45 01/05/18 02:45 01/05/18 02:45 01/05/18 02:45 01/05/18 02:45 - Laboratory Result Diagrams: 01/04/18 18:46 01/04/18 18:46 Laboratory results interpreted by me: 01/04/18 01/04/18 01/04/18 18:46 18:46 19:30 WBC 22.7 H Hgb 10.2 L Hct 32.3 L MCV 64 L MCH 20.2 L MCHC 31.6 L RDW 14.4 H Seg Neuts % (Manual) 89 H Lymphocytes % (Manual) 3 L Abs Neuts (Manual) 20.2 H Abs Monocytes (Manual) 1.8 H Sodium 133.4 L Glucose 131 H POC Glucose Total Bilirubin 1.5 H Direct Bilirubin 0.8 H Urine Protein 100 H Urine Blood MODERATE H Urine Urobilinogen 4.0 H Ur Leukocyte Esterase MODERATE H 01/04/18 19:55 WBC Hgb Hct MCV MCH MCHC RDW Seg Neuts % (Manual) Lymphocytes % (Manual) Abs Neuts (Manual) Abs Monocytes (Manual) Sodium Glucose POC Glucose 148 H Total Bilirubin Direct Bilirubin Urine Protein Urine Blood Urine Urobilinogen Ur Leukocyte Esterase Discharge - Discharge Clinical Impression: Postoperative fever Abdominal pain Qualifiers: Abdominal location: unspecified location Qualified Code(s): R10.9 - Unspecified abdominal pain Leukocytosis Qualifiers: Leukocytosis type: unspecified Qualified Code(s): D72.829 - Elevated white blood cell count, unspecified Condition: Stable Disposition: ADMITTED INPATIENT Admitting Provider: [facility] Unit Admitted: Labor and Delivery - Maternal Child
[2018-01-04 19:35] LABS: INTERNATIONAL RATION (INR) 0.96; PROTHROMBIN TIME 13.5 SEC (11.4-15.4)
[2018-01-04 19:39] LABS: ABSOLUTE LYMPHOCYTES# (MANUAL) 0.7 10^3/uL (0.5-4.7); ABSOLUTE MONOCYTES # (MANUAL) 1.8 10^3/uL (0.1-1.4); ABSOLUTE NEUTROPHILS# (MANUAL) 20.2 10^3/uL (1.7-8.2); BASOPHILS % (MANUAL) 0 % (0-2); EOSINOPHILS % (MANUAL) 0 % (0-6); LYMPHOCYTES % (MANUAL) 3 % (13-45); MONOCYTES % (MANUAL) 8 % (3-13); SEGMENTED NEUTROPHILS % (MAN) 89 % (42-78); TOTAL CELLS COUNTED 100
[2018-01-04 19:41] LABS: OVALOCYTES 1+; POLYCHROMASIA SLIGHT; TEAR DROP CELLS SLIGHT
[2018-01-04 19:42] LABS: ANISOCYTOSIS SLIGHT; MEAN CORPUSCULAR VOLUME 64 fl (80-97); PLATELET COMMENT ADEQUATE; PLATELET LARGE PRESENT; POIKILOCYTOSIS 1+
[2018-01-04 20:23] LABS: AMORPHOUS SEDIMENT,URINE TRACE /HPF; APPEARANCE,URINE CLOUDY; BILIRUBIN,URINE NEGATIVE (NEGATIVE); COLOR,URINE AMBER; GLUCOSE, URINE NEGATIVE (NEGATIVE); KETONES,URINE NEGATIVE (NEGATIVE); LEUKOCYTE ESTERASE,URINE MODERATE (NEGATIVE); NITRITE,URINE NEGATIVE (NEGATIVE); PROTEIN,URINE 100 mg/dL (NEGATIVE); URINE SPECIFIC GRAVITY 1.023
[2018-01-04 20:42] LABS: A TYPE INFLUENZA AG NEGATIVE (NEGATIVE); B INFLUENZA AG NEGATIVE (NEGATIVE)
--- NOTE | 2018-01-04 20:45 | EKG REPORT ---
SEVERITY:- ABNORMAL ECG - SINUS RHYTHM LA ABNORMALITY IVCD : Confirmed by: Reynold Guzmán MD 04-Jan-2018 20:44:27
--- NOTE | 2018-01-04 22:19 | RADIOLOGY REPORT (SQ) ---
EXAM DESCRIPTION: CT ABD/PELVIS WITH IV ONLY COMPLETED DATE/TIME: 01/04/2018 9:35 pm REASON FOR STUDY: post op fever, RLQ abd pain, leukocytosis COMPARISON: Chest radiograph TECHNIQUE: CT scan of the abdomen and pelvis performed using helical scanning technique with dynamic intravenous contrast injection. No oral contrast. Images reviewed with lung, soft tissue, and bone windows. Reconstructed coronal and sagittal MPR images reviewed. Delayed images for evaluation of the urinary system also acquired. All images stored on PACS. All CT scanners at this facility use dose modulation, iterative reconstruction, and/or weight based d osing when appropriate to reduce radiation dose to as low as reasonably achievable (ALARA). [facility]: Dose Right [facility]: CareDose [facility]: Dose Right [facility]: Teradose 4D [facility]: SCOUPY CONTRAST TYPE AND DOSE: contrast/concentration: Isovue 370.00 mg/ml; Total Contrast Delivered: 83.0 ml; Total Saline Delivered: 40.0 ml RENAL FUNCTION: GFR > 60. RADIATION DOSE: CT Rad equipment meets quality standard of care and radiation dose reduction techniq ues were employed. CTDIvol: 8.3 mGy. DLP: 903 mGy-cm.. LIMITATIONS: None. FINDINGS: LOWER CHEST: Basilar pleural reaction. LIVER: Normal size. No masses. No dilated ducts. SPLEEN: Normal size. No focal lesions. PANCREAS: No masses. No significant calcifications. No adjacent inflammation or peripancreatic fluid collections. Pancreatic duct not dilated. GALLBLADDER: No identified stones by CT criteria. No inflammatory changes to suggest cholecystitis. ADRENAL GLANDS: No significant masses or asymmetry. RIGHT KIDNEY AND URETER: No solid masses. No significant calcifications. No hydronephrosis or hyd roureter. LEFT KIDNEY AND URETER: No solid masses. No significant calcifications. No hydronephrosis or hydr oureter. AORTA AND VESSELS: No aneurysm. No dissection. Renal arteries, SMA, celiac without stenosis. RETROPERITONEUM: No retroperitoneal adenopathy, hemorrhage or masses. BOWEL AND PERITONEAL CAVITY: No masses or inflammatory changes. No free fluid or peritoneal masses. APPENDIX: Normal. PELVIS: Some fluid in the pelvis without a discrete loculated fluid collection. Few gas bubbles pres ent. All likely related to the recent surgery. ABDOMINAL WALL: No masses. No hernias. BONES: Degenerative changes at L5-S1. OTHER: No other significant finding. IMPRESSION: Minimal fluid in the pelvis with a few gas bubbles and some fat stranding. No focal abs cess or fluid collection. TECHNICAL DOCUMENTATION: JOB ID: [id number] Quality ID # [id number]: Final reports with documentation of one or more dose reduction techniques (e.g., Au tomated exposure control, adjustment of the mA and/or kV according to patient size, use of iterative reconstruction technique) 2010 [employer]- All Rights Reserved Reading location - IP/workstation name: [email or web address]
[2018-01-04] MEDS ORDERED: PIPERACILLIN/TAZOBACTAM 4.5 GM VIAL IV ONE (22:28)
[2018-01-05] MEDS ORDERED: GENTAMICIN SULFATE INJ 80 MG/2 ML VIAL IV PRN (02:49)
[2018-01-05] MEDS ORDERED: OXYCODONE-ACETAMINOPHEN 5-325 MG TABLET PO PRN (03:58)
[2018-01-05] MEDS ORDERED: GENTAMICIN SULFATE 60 MG in DEXTROSE 5%-WATER 100 ML IV ONE (04:00)
[2018-01-05] MEDS: CLINDAMYCIN 600 MG/D5W RTU 600 MG/50 ML RTUPB IV SCH ×3 (04:40→16:14)
[2018-01-05 07:07] LABS: HEMATOCRIT 28.6 % (36.0-47.0); MEAN CORPUSCULAR HEMOGLOBIN 20.2 pg (27.0-33.4); MEAN CORPUSCULAR HGB CONC 31.5 g/dL (32.0-36.0); MEAN CORPUSCULAR VOLUME 64 fl (80-97); PLATELET COUNT 338 10^3/uL (150-450); RED BLOOD COUNT 4.47 10^6/uL (3.72-5.28); RED CELL DISTRIBUTION WIDTH 14.3 % (11.5-14.0); WHITE BLOOD COUNT 19.7 10^3/uL (4.0-10.5)
[2018-01-05 07:17] LABS: ANION GAP 11 (5-19); BLOOD UREA NITROGEN 9 mg/dL (7-20); CALCIUM 8.9 mg/dL (8.4-10.2); CARBON DIOXIDE 23 mmol/L (22-30); CHLORIDE 105 mmol/L (98-107); GLUCOSE 119 mg/dL (75-110); POTASSIUM 4.1 mmol/L (3.6-5.0); SODIUM 138.5 mmol/L (137-145)
[2018-01-05 08:01] LABS: ABSOLUTE LYMPHOCYTES# (MANUAL) 1.4 10^3/uL (0.5-4.7); ABSOLUTE MONOCYTES # (MANUAL) 1.8 10^3/uL (0.1-1.4); ABSOLUTE NEUTROPHILS# (MANUAL) 16.4 10^3/uL (1.7-8.2); BASOPHILS % (MANUAL) 1 % (0-2); EOSINOPHILS % (MANUAL) 0 % (0-6); LYMPHOCYTES % (MANUAL) 5 % (13-45); MONOCYTES % (MANUAL) 9 % (3-13); SEGMENTED NEUTROPHILS % (MAN) 83 % (42-78); TOTAL CELLS COUNTED 100
[2018-01-05 08:02] LABS: TOXIC VACUOLATION PRESENT
[2018-01-05 08:06] LABS: TOXIC GRANULATION SLIGHT
[2018-01-05 08:11] LABS: POLYCHROMASIA 1+
[2018-01-05 08:15] LABS: HYPOCHROMASIA 2+
[2018-01-05 08:20] LABS: ANISOCYTOSIS SLIGHT
--- NOTE | 2018-01-05 08:27 | RADIOLOGY REPORT (SQ) ---
EXAM DESCRIPTION: CHEST PA/LAT COMPLETED DATE/TIME: 01/05/2018 8:19 am REASON FOR STUDY: postoperative infection,fever COMPARISON: Two-view chest 07/16/2016, 06/16/2015 EXAM PARAMETERS: NUMBER OF VIEWS: two views TECHNIQUE: Digital Frontal and Lateral radiographic views of the chest acquired. RADIATION DOSE: NA LIMITATIONS: none FINDINGS: LUNGS AND PLEURA: No opacities, masses or pneumothorax. No pleural effusion. MEDIASTINUM AND HILAR STRUCTURES: No masses or contour abnormalities. HEART AND VASCULAR STRUCTURES: Heart normal size. No evidence for failure. BONES: No acute findings. HARDWARE: None in the chest. OTHER: No other significant finding. IMPRESSION: NO SIGNIFICANT RADIOGRAPHIC FINDING IN THE CHEST. TECHNICAL DOCUMENTATION: JOB ID: [id number] [email or web address]- All Rights Reserved Reading location - IP/workstation name: [email or web address]
[2018-01-05 08:28] LABS: PLATELET CLUMPS PRESENT
[2018-01-05 08:33] LABS: TEAR DROP CELLS SLIGHT
[2018-01-05 08:34] LABS: PLATELET LARGE PRESENT; POIKILOCYTOSIS 1+; SCHISTOCYTES 1+
[2018-01-05 08:40] LABS: OVALOCYTES 1+
[2018-01-05] MEDS: IBUPROFEN 800 MG TABLET PO PRN ×2 (09:36→21:07)
[2018-01-05 12:13] LABS: PATH REVIEW PATHOLOGIST REVIEWED
[2018-01-05] MEDS: NORMAL SALINE IV SCH (21:07)
[2018-01-05] MEDS: GENTAMICIN SULFATE IV SCH (21:07)
[2018-01-06] MEDS: CLINDAMYCIN 600 MG/D5W RTU 600 MG/50 ML RTUPB IV SCH ×4 (00:18→18:27)
[2018-01-06] MEDS: NORMAL SALINE 1000 ML 1,000 ML IV PRN ×2 (00:25→14:50)
[2018-01-06 06:49] LABS: HEMATOCRIT 23.8 % (36.0-47.0); MEAN CORPUSCULAR HEMOGLOBIN 20.2 pg (27.0-33.4); MEAN CORPUSCULAR HGB CONC 31.7 g/dL (32.0-36.0); MEAN CORPUSCULAR VOLUME 64 fl (80-97); PLATELET COUNT 263 10^3/uL (150-450); RED BLOOD COUNT 3.72 10^6/uL (3.72-5.28); RED CELL DISTRIBUTION WIDTH 14.3 % (11.5-14.0); WHITE BLOOD COUNT 17.1 10^3/uL (4.0-10.5)
[2018-01-06 07:21] LABS: HEMOGLOBIN 7.5 g/dL (12.0-15.5)
[2018-01-06 07:28] LABS: ABSOLUTE LYMPHOCYTES# (MANUAL) 0.9 10^3/uL (0.5-4.7); ABSOLUTE MONOCYTES # (MANUAL) 1.7 10^3/uL (0.1-1.4); ABSOLUTE NEUTROPHILS# (MANUAL) 14.5 10^3/uL (1.7-8.2); BAND NEUTROPHILS % (MANUAL) 1 % (3-5); BASOPHILS % (MANUAL) 0 % (0-2); EOSINOPHILS % (MANUAL) 0 % (0-6); HYPOCHROMASIA SLIGHT; LYMPHOCYTES % (MANUAL) 5 % (13-45); MONOCYTES % (MANUAL) 10 % (3-13); OVALOCYTES SLIGHT; PLATELET COMMENT ADEQUATE; POIKILOCYTOSIS SLIGHT; POLYCHROMASIA SLIGHT; SEGMENTED NEUTROPHILS % (MAN) 84 % (42-78); TOTAL CELLS COUNTED 100; TOXIC GRANULATION SLIGHT
[2018-01-06] MEDS: NORMAL SALINE IV SCH ×2 (09:00→20:20)
[2018-01-06] MEDS: GENTAMICIN SULFATE IV SCH ×2 (09:00→20:20)
[2018-01-06] MEDS: LACTOBACILLUS ACIDOPHILUS 250 MG TAB PO SCH ×2 (10:18→18:27)
[2018-01-06] MEDS: FERROUS SULFATE 325 MG TABLET PO SCH ×2 (10:18→18:26)
[2018-01-06] MEDS ORDERED: ONDANSETRON HCL INJ/PF 4 MG/2 ML SDV ONE (12:15)
[2018-01-06] MEDS ORDERED: ONDANSETRON HCL INJ/PF 4 MG/2 ML SDV IV PRN (12:48)
[2018-01-06] MEDS: IBUPROFEN 800 MG TABLET PO PRN (16:30)
[2018-01-07] MEDS: IBUPROFEN 800 MG TABLET PO PRN (00:38)
[2018-01-07] MEDS: CLINDAMYCIN 600 MG/D5W RTU 600 MG/50 ML RTUPB IV SCH ×2 (01:41→06:28)
[2018-01-07] MEDS: NORMAL SALINE 1000 ML 1,000 ML IV PRN (06:40)
[2018-01-07 08:29] LABS: HEMATOCRIT 22.6 % (36.0-47.0); MEAN CORPUSCULAR HEMOGLOBIN 20.3 pg (27.0-33.4); MEAN CORPUSCULAR VOLUME 64 fl (80-97); PLATELET COUNT 288 10^3/uL (150-450); RED BLOOD COUNT 3.55 10^6/uL (3.72-5.28); RED CELL DISTRIBUTION WIDTH 14.5 % (11.5-14.0); WHITE BLOOD COUNT 17.9 10^3/uL (4.0-10.5)
[2018-01-07 08:42] LABS: HEMOGLOBIN 7.2 g/dL (12.0-15.5)
[2018-01-07 08:43] LABS: GENTAMICIN-TROUGH 1.3 ug/mL (<2.0)
[2018-01-07 09:11] LABS: ABSOLUTE LYMPHOCYTES# (MANUAL) 0.9 10^3/uL (0.5-4.7); ABSOLUTE MONOCYTES # (MANUAL) 0.7 10^3/uL (0.1-1.4); ABSOLUTE NEUTROPHILS# (MANUAL) 16.3 10^3/uL (1.7-8.2); BAND NEUTROPHILS % (MANUAL) 1 % (3-5); BASOPHILS % (MANUAL) 0 % (0-2); EOSINOPHILS % (MANUAL) 0 % (0-6); LYMPHOCYTES % (MANUAL) 5 % (13-45); MONOCYTES % (MANUAL) 4 % (3-13); SEGMENTED NEUTROPHILS % (MAN) 90 % (42-78); TOTAL CELLS COUNTED 100
[2018-01-07 09:12] LABS: ANISOCYTOSIS 1+; BURR CELLS SLIGHT; HYPOCHROMASIA SLIGHT; OVALOCYTES 2+; PLATELET COMMENT ADEQUATE; POIKILOCYTOSIS 2+; POLYCHROMASIA SLIGHT; ROULEAUX 1+; SCHISTOCYTES SLIGHT; TOXIC GRANULATION SLIGHT; TOXIC VACUOLATION PRESENT
[2018-01-07 09:47] VITALS: BP 100/49
[2018-01-07] MEDS: GENTAMICIN SULFATE IV SCH (10:04)
[2018-01-07] MEDS: NORMAL SALINE IV SCH (10:04)
--- NOTE | 2018-01-07 10:08 | DISCHARGE SUMMARY E ---
Discharge Summary NAME: MINNIE FAIRCHILD : 1975 AGE: 42Y ADMITTED: 01/06/2018 DISCHARGED: HOSPITAL COURSE: This is a 42-year-old female status post a vaginal hysterectomy on December 29 for symptomatic uterine leiomyoma. She was discharged on the twenty-second ambulatory, regular diet. Pathology was benign. She was seen in the emergency room on January 03 and white count was 20,000; temperature 101 with right upper quadrant pain. CT demonstrated what appeared to be a parametral consolidation on the right. Appendix appeared to be within normal limits. No vaginal discharge was appreciated. She was admitted for IV antibiotics for presumed parametral infection/cuff infection. Ureter appeared to be normal and no evidence of obstruction was appreciated. Patient was admitted and given a dose of Unasyn product in the ER. She was followed with gentamicin and Cleocin until date of discharge on 01/07/18. Her pain essentially vanished. She is ambulatory, regular diet. She did have some nausea associated with the Cleocin administration and occasional vomiting with that. White count had gone down to 17,000 by the time she was discharged. She remained afebrile throughout the hospital course. DISPOSITION: Return to the office in 1 week. She was discharged on no antibiotics. She did not require any pain medicine. She does have some at home if she needs anything. No evidence of DVT. Ambulatory with no complaints. FINAL IMPRESSION: Postoperative wound infection. PROCEDURE: CT and IV antibiotics. DICTATING PHYSICIAN: HOMERO CORNELL M.D. [id number] PHY#: [id number] ID: [id number] JOB#: [id number] ACCT: [id number] cc:HOMERO CORNELL M.D. >
== END 2018-01-07 09:55 | disposition home or self-care (01) | DRG 863 ==
LOC: ER 17:04 → EH 23:16 → UNDOADMIN 23:16 → 2S 01-05 01:10 → EH 01-05 01:10 → 2S 01-06 08:25
PROVIDERS: ADMIT Specialist; ATTEND Specialist
DX: T81.4XXA Infection following a procedure, initial encounter (principal); N73.2 Unspecified parametritis and pelvic cellulitis; F17.200 Nicotine dependence, unspecified, uncomplicated; Z83.3 Family history of diabetes mellitus; Z82.49 Family history of ischemic heart disease and other diseases of the circulatory system; Z82.61 Family history of arthritis; Z87.42 Personal history of other diseases of the female genital tract
CPT/HCPCS: 36415; 71046; 74177; 80048; 80053; 80170; 81001; 82565; 82803; 82962; 83605; 85025; 85610; 87040; 87086; 87804; 93005; 93010; 96361; 96374; 99285; J1580; J2405; J2543; J7030

== ENCOUNTER 2018-01-11 07:51 | Inpatient (IN) | payer BC ==
[2018-01-11] MEDS ORDERED: METOCLOPRAMIDE HCL INJ/PF 10 MG/2 ML SDV IV ONE (08:16)
[2018-01-11] MEDS ORDERED: NORMAL SALINE 1000 ML 1,000 ML IV ONE (08:16)
[2018-01-11 09:25] LABS: HEMATOCRIT 29.6 % (36.0-47.0); HEMOGLOBIN 9.4 g/dL (12.0-15.5); MEAN CORPUSCULAR HEMOGLOBIN 19.7 pg (27.0-33.4); MEAN CORPUSCULAR HGB CONC 31.8 g/dL (32.0-36.0); MEAN CORPUSCULAR VOLUME 62 fl (80-97); PLATELET COUNT 732 10^3/uL (150-450); RED BLOOD COUNT 4.78 10^6/uL (3.72-5.28); RED CELL DISTRIBUTION WIDTH 14.6 % (11.5-14.0)
[2018-01-11 09:33] LABS: WHITE BLOOD COUNT 33.1 10^3/uL (4.0-10.5)
[2018-01-11 09:36] LABS: ALANINE AMINOTRANSFERASE 68 U/L (9-52); ALBUMIN 3.6 g/dL (3.5-5.0); ALKALINE PHOSPHATASE 251 U/L (38-126); ANION GAP 17 (5-19); ASPARTATE AMINO TRANSFERASE 20 U/L (14-36); BILIRUBIN,DIRECT 2.3 mg/dL (0.0-0.4); BILIRUBIN,TOTAL 2.9 mg/dL (0.2-1.3); BLOOD UREA NITROGEN 15 mg/dL (7-20); CALCIUM 9.5 mg/dL (8.4-10.2); CARBON DIOXIDE 27 mmol/L (22-30); CHLORIDE 95 mmol/L (98-107); GLUCOSE 133 mg/dL (75-110); LIPASE 27.6 U/L (23-300); POTASSIUM 3.6 mmol/L (3.6-5.0); SODIUM 138.5 mmol/L (137-145); TOTAL PROTEIN 6.6 g/dL (6.3-8.2)
[2018-01-11] MEDS ORDERED: AMPICILLIN SOD/SULBACTAM 3 GM VIAL IV ONE (09:42)
--- NOTE | 2018-01-11 09:42 | ER Document Report ---
ED GI/ - General Chief Complaint: Nausea/Vomiting/Diarrhea Stated Complaint: VOMITING Time Seen by Provider: 01/11/18 08:04 Mode of Arrival: Ambulatory Information source: Patient Notes: Pt is a 42 year old female who presents to the ER today for nausea, vomiting, diarrhea since yesterday. Patient had a vaginal hysterectomy on December 29, then returned on January 06 for fever and right lower quadrant abdominal pain, was diagnosed with "possible postop infection" because she had a leukocytosis at that time of 22,000. Patient was placed on clindamycin and gentamicin, CT revealed no acute pathology so nothing was drained at that time. Patient states that the lower abdominal pain does feel a little better but that she still does have it, now all across the low abdomen. She denies any vaginal drainage, bleeding. TRAVEL OUTSIDE OF THE [place] IN LAST 30 DAYS: No - Related Data Allergies/Adverse Reactions: No Known Allergies Allergy (Verified 01/11/18 07:52) Past Medical History - General Information source: Patient - Social History Smoking Status: Unknown if Ever Smoked Chew tobacco use (# tins/day): No Drug Abuse: None Family History: Arthritis, CAD, DM, Hyperlipidemia, Hypertension Patient has suicidal ideation: No Patient has homicidal ideation: No - Past Medical History Cardiac Medical History: Denies: Hx Coronary Artery Disease, Hx Heart Attack, Hx Hypertension Pulmonary Medical History: Denies: Hx Asthma, Hx Bronchitis, Hx COPD, Hx Pneumonia Neurological Medical History: Reports: Hx Migraine. Denies: Hx Cerebrovascular Accident, Hx Seizures Renal/ Medical History: Reports: Hx Ovarian Cysts - fibroids. Denies: Hx Peritoneal Dialysis Musculoskeltal Medical History: Denies Hx Arthritis, Reports Hx Musculoskeletal Deformity, Reports Hx Musculoskeletal Trauma - right shoulder injury with bursitis and tennis elbow Past Surgical History: Reports: Hx Gynecologic Surgery - uterine fibroids, Hx Hysterectomy, Hx Oral Surgery, Hx Tonsillectomy - Immunizations Immunizations up to date: No Hx Diphtheria, Pertussis, Tetanus Vaccination: Yes Review of Systems - Review of Systems Constitutional: No symptoms reported EENT: No symptoms reported Cardiovascular: No symptoms reported Respiratory: No symptoms reported Gastrointestinal: See HPI Genitourinary: No symptoms reported Female Genitourinary: See HPI Musculoskeletal: No symptoms reported Skin: No symptoms reported Hematologic/Lymphatic: No symptoms reported Neurological/Psychological: No symptoms reported Physical Exam - Vital signs Vitals: Temp Pulse Resp BP Pulse Ox 99.0 F 122 H 18 122/60 95 01/11/18 07:55 01/11/18 07:55 01/11/18 07:55 01/11/18 07:55 01/11/18 07:55 - Notes Notes: PHYSICAL EXAMINATION: GENERAL: Mildly ill-appearing, but in no acute distress. HEAD: Atraumatic, normocephalic. EYES: Pupils equal round and reactive to light, extraocular movements intact, sclera anicteric, conjunctiva are normal. NECK: Normal range of motion, supple without lymphadenopathy LUNGS: CTAB and equal. No wheezes rales or rhonchi. HEART: Regular rate and rhythm without murmurs ABDOMEN: Soft, right lower quadrant, suprapubic, left lower quadrant tenderness. No guarding, no rebound BACK: no vertebral tenderness, normal ROM GI/: no CVA tenderness EXTREMITIES: Normal range of motion, no pitting edema. No cyanosis. NEUROLOGICAL: Cranial nerves grossly intact. Normal sensory/motor exams. PSYCH: Normal mood, normal affect. SKIN: Warm, Dry, normal turgor, no rashes or lesions noted Course - Re-evaluation Re-evalutation: 01/11/18 10:51 Patient has a leukocytosis of 33,000, multiple pelvic abscesses on CAT scan with a partial small bowel obstruction, the largest abscess measuring 7.[address] West, [employer] who admitted her and performed her hysterectomy agrees to admission at this time and will call radiologist for interventional radiology to drain the abscesses. Patient on Unasyn which Dr. West agrees with at this time. Patient has not vomited after being given Reglan IV. Patient has been n.p.o. - Vital Signs Vital signs: Temp Pulse Resp BP Pulse Ox 99.0 F 122 H 18 122/60 95 01/11/18 07:55 01/11/18 07:55 01/11/18 07:55 01/11/18 07:55 01/11/18 07:55 - Laboratory Result Diagrams: 01/11/18 09:05 01/11/18 09:05 Laboratory results interpreted by me: 01/11/18 01/11/18 01/11/18 09:05 09:05 09:05 WBC 33.1 H* Hgb 9.4 L Hct 29.6 L MCV 62 L MCH 19.7 L MCHC 31.8 L RDW 14.6 H Plt Count 732 H Seg Neuts % (Manual) 90 H Band Neutrophils % 1 L Lymphocytes % (Manual) 3 L Monocytes % (Manual) 2 L Metamyelocytes % 2 H Abs Neuts (Manual) 30.8 H Abs Basophils (Manual) 0.3 H Chloride 95 L Est GFR (Non-Af Amer) 59 L Glucose 133 H Total Bilirubin 2.9 H Direct Bilirubin 2.3 H ALT 68 H Alkaline Phosphatase 251 H Urine Protein 100 H Urine Glucose (UA) 50 H Urine Ketones 20 H Urine Bilirubin SMALL H Urine Urobilinogen 4.0 H Ur Leukocyte Esterase TRACE H Urine Ascorbic Acid 40 H Discharge - Discharge Clinical Impression: Partial small bowel obstruction, Pelvic abscess Condition: Stable Disposition: ADMITTED INPATIENT Admitting Provider: [facility] Unit Admitted: Surgical Floor - Surgical
[2018-01-11 09:49] LABS: ABSOLUTE LYMPHOCYTES# (MANUAL) 1.3 10^3/uL (0.5-4.7); ABSOLUTE MONOCYTES # (MANUAL) 0.7 10^3/uL (0.1-1.4); ABSOLUTE NEUTROPHILS# (MANUAL) 30.8 10^3/uL (1.7-8.2); BAND NEUTROPHILS % (MANUAL) 1 % (3-5); BASOPHILS % (MANUAL) 1 % (0-2); EOSINOPHILS % (MANUAL) 0 % (0-6); LYMPHOCYTES % (MANUAL) 3 % (13-45); METAMYELOCYTES % (MANUAL) 2 % (0); MONOCYTES % (MANUAL) 2 % (3-13); NUCLEATED RED BLOOD CELLS 1 /100 WBC (0); PLATELET COMMENT INCREASED; POLYCHROMASIA SLIGHT; ROULEAUX 1+; SEGMENTED NEUTROPHILS % (MAN) 90 % (42-78); TOTAL CELLS COUNTED 100
[2018-01-11 09:50] LABS: OVALOCYTES 1+; POIKILOCYTOSIS 1+; TOXIC GRANULATION 1+; TOXIC VACUOLATION PRESENT
[2018-01-11 10:31] LABS: AMORPHOUS SEDIMENT,URINE TRACE /HPF; APPEARANCE,URINE TURBID; BILIRUBIN,URINE SMALL (NEGATIVE); COLOR,URINE YELLOW; GLUCOSE, URINE 50 mg/dL (NEGATIVE); KETONES,URINE 20 mg/dL (NEGATIVE); LEUKOCYTE ESTERASE,URINE TRACE (NEGATIVE); NITRITE,URINE NEGATIVE (NEGATIVE); PROTEIN,URINE 100 mg/dL (NEGATIVE); URINE SPECIFIC GRAVITY 1.029
--- NOTE | 2018-01-11 10:32 | RADIOLOGY REPORT (SQ) ---
EXAM DESCRIPTION: CT ABD/PELVIS WITH IV ONLY COMPLETED DATE/TIME: 01/11/2018 10:16 am REASON FOR STUDY: leukocytosis, recent infection, recent hysterectom COMPARISON: None. TECHNIQUE: CT scan of the abdomen and pelvis performed using helical scanning technique with dynamic intravenous contrast injection. No oral contrast. Images reviewed with lung, soft tissue, and bone windows. Reconstructed coronal and sagittal MPR images reviewed. Delayed images for evaluation of the urinary system also acquired. All images stored on PACS. All CT scanners at this facility use dose modulation, iterative reconstruction, and/or weight based d osing when appropriate to reduce radiation dose to as low as reasonably achievable (ALARA). [facility]: Dose Right [facility]: CareDose [facility]: Dose Right [facility]: Teradose 4D [facility]: Ezuza CONTRAST TYPE AND DOSE: contrast/concentration: Isovue 370.00 mg/ml; Total Contrast Delivered: 84.0 ml; Total Saline Delivered: 67.0 ml RENAL FUNCTION: GFR > 60. RADIATION DOSE: CT Rad equipment meets quality standard of care and radiation dose reduction techniq ues were employed. CTDIvol: 8.7 - 12.2 mGy. DLP: 1293 mGy-cm.. LIMITATIONS: None. FINDINGS: LOWER CHEST: Trace right pleural effusion. LIVER: Normal size. No masses. No dilated ducts. SPLEEN: Normal size. No focal lesions. PANCREAS: No masses. No significant calcifications. No adjacent inflammation or peripancreatic fluid collections. Pancreatic duct not dilated. GALLBLADDER: No identified stones by CT criteria. No inflammatory changes to suggest cholecystitis. ADRENAL GLANDS: No significant masses or asymmetry. RIGHT KIDNEY AND URETER: No solid masses. No significant calcifications. No hydronephrosis or hyd roureter. LEFT KIDNEY AND URETER: No solid masses. No significant calcifications. No hydronephrosis or hydr oureter. AORTA AND VESSELS: No aneurysm. No dissection. Renal arteries, SMA, celiac without stenosis. RETROPERITONEUM: No retroperitoneal adenopathy, hemorrhage or masses. BOWEL AND PERITONEAL CAVITY: Dilated loops of small bowel with gas fluid levels. Transition in the p [place] adjacent to multiple gas fluid collections, the largest about 7.1 x 4.1 cm. Small amount of as cites. No free air or pneumatosis. APPENDIX: Not visualized. PELVIS: See above. ABDOMINAL WALL: No masses. No hernias. BONES: No significant or acute findings. OTHER: No other significant finding. IMPRESSION: Partial small bowel obstruction associated with pelvic abscesses. Surgical consultation is recommended. TECHNICAL DOCUMENTATION: JOB ID: [id number] Quality ID # [id number]: Final reports with documentation of one or more dose reduction techniques (e.g., Au tomated exposure control, adjustment of the mA and/or kV according to patient size, use of iterative reconstruction technique) 2010 [employer]- All Rights Reserved Reading location - IP/workstation name: [email or web address]
[2018-01-11] MEDS ORDERED: FENTANYL CITRATE INJ/PF 100 MCG/2 ML AMPUL IV ONE (11:08)
[2018-01-11] MEDS ORDERED: LIDOCAINE 1% INJ-PF (10 MG/ML) 30 ML SDV ONE (15:14)
[2018-01-11] MEDS ORDERED: FENTANYL CITRATE INJ/PF 100 MCG/2 ML AMPUL ONE (15:15)
[2018-01-11] MEDS ORDERED: MIDAZOLAM 2 MG/2 ML INJ ONE (15:15)
--- NOTE | 2018-01-11 16:19 | RADIOLOGY REPORT (SQ) ---
EXAM DESCRIPTION: CT GUIDED PERCUT DRAIN W/CATH COMPLETED DATE/TIME: 01/11/2018 4:05 pm REASON FOR STUDY: CT ASPIRATION PELVIS ABSCESS COMPARISON: None. FLUORO TIME: 6 seconds LIMITATIONS: None. PROCEDURE: After obtaining informed consent, the patient was brought to the CT suite and was placed supine on the CT gurney. The patient was prepped and draped in the usual sterile fashion . Rectal co ntrast was administered. Axial images were obtained for targeting of thepelvic abscess. An appropria te access site was selected. IV sedation was administered and physician direction by the ismael bland using to milligrams of Versed and 100 micrograms of fentanyl. Physiologic monitoring was provide d before, during, and after sedation. The total sedation time was 25 minutes. Documentation face to face time, the performing proceduralist, spent monitoring the patient: 10minute s. Anterior approach. Coaxial needle was exchanged for guidewire. Following serial dilation, a 10 Fren ch APD pigtail catheter was placed in the fluid collection. Purulent material was aspirated. The ca theter was secured to the skin and a sterile dressing was applied. IMPRESSION: Successful CT-guided drainage of pelvic abscess. COMMENT: Patient medication list reviewed:Yes- Quality ID# 130:Eligible professional attests to docu menting in the medical record they obtained, updated, or reviewed the patient's current medications. Quality ID #76: The patient was prepped and draped using maximum sterile barrier technique including cap, mask, sterile gown, sterile gloves, a large sterile sheet, hand hygiene, and 2% Chlorhexidine fo r cutaneous antisepsis. When ultrasound is used, sterile ultrasound techniques are followed requiring sterile gel and sterile probes. Quality ID 145: Final reports for procedures using fluoroscopy that document radiation exposure janene arjun, or exposure time and number of fluorographic images (if radiation exposure indices are not avail able) Quality ID# 436: Final reports with documentation of one or more dose reduction techniques (e.g., Aut omated exposure control, adjustment of the mA and/or kV according to patient size, use of iterative r econstruction technique) TECHNICAL DOCUMENTATION: JOB ID: [id number] [employer]- All Rights Reserved Reading location - IP/workstation name: [email or web address]
[2018-01-11] MEDS ORDERED: OXYCODONE-ACETAMINOPHEN 5-325 MG TABLET PO PRN (18:32)
[2018-01-11] MEDS: PIPERACILLIN SODIUM/TAZOBACTAM 3.375 GM in NORMAL SALINE 100 ML IV SCH (20:16)
[2018-01-11] MEDS: IBUPROFEN 800 MG TABLET PO PRN (22:04)
[2018-01-12] MEDS: PIPERACILLIN SODIUM/TAZOBACTAM 3.375 GM in NORMAL SALINE 100 ML IV SCH ×4 (02:34→21:06)
[2018-01-12] MEDS: RINGERS SOLUTION,LACTATED 1,000 ML IV PRN ×2 (02:34→13:28)
[2018-01-12 07:41] LABS: HEMATOCRIT 25.8 % (36.0-47.0); HEMOGLOBIN 8.3 g/dL (12.0-15.5); MEAN CORPUSCULAR HEMOGLOBIN 19.9 pg (27.0-33.4); MEAN CORPUSCULAR HGB CONC 32.2 g/dL (32.0-36.0); MEAN CORPUSCULAR VOLUME 62 fl (80-97); PLATELET COUNT 665 10^3/uL (150-450); RED BLOOD COUNT 4.19 10^6/uL (3.72-5.28); RED CELL DISTRIBUTION WIDTH 14.3 % (11.5-14.0); WHITE BLOOD COUNT 16.6 10^3/uL (4.0-10.5)
[2018-01-12 08:00] LABS: ANION GAP 13 (5-19); BLOOD UREA NITROGEN 17 mg/dL (7-20); CALCIUM 8.3 mg/dL (8.4-10.2); CARBON DIOXIDE 26 mmol/L (22-30); CHLORIDE 98 mmol/L (98-107); GLUCOSE 117 mg/dL (75-110); POTASSIUM 3.8 mmol/L (3.6-5.0); SODIUM 136.7 mmol/L (137-145)
[2018-01-12 13:24] LABS: PATH REVIEW PATHOLOGIST REVIEWED
--- NOTE | 2018-01-12 16:24 | HISTORY AND PHYSICAL E ---
History and Physical NAME: MINNIE FAIRCHILD : 1975 AGE: 42Y ADMITTED: 01/11/2018 ROOM: 222 HISTORY OF PRESENT ILLNESS: This is a 42-year-old female, date of 1975, admitted on January 10 through the emergency room. She is status post a vaginal hysterectomy on 12/29/2017. Seen approximately 1 week postop with a parametrial infection that responded nicely to gentamicin and Cleocin. She spent 3 days in the hospital with IV antibiotics, ambulatory, afebrile. Diminishment of her white count. No pain. It was initially right lower quadrant. A CT at that time demonstrated some induration, mostly in the right parametrial area. The patient was sent home, and 3 days later, returned to the emergency room with worsening pain and elevated temperature. White count was approximately 30,000, with a CT finding of a 4 x 7 cm gas-filled loculation, with evidence of small bowel partial obstruction. She was brought in. IV antibiotics with Zosyn were started. She was admitted for possible needle aspiration and drainage of the fluid pocket. Pathology on the previous surgery was benign fibroid. PAST MEDICAL HISTORY: Significant for the fibroids only. Denied any ovarian cysts or other breasts lumps. Past medical history is negative for migraines only. Denied any heart disease, chemical dependency, diabetes, renal disease, respiratory problems or thyroid problems. SOCIAL HISTORY: The patient is not sexually active. She is a half-pack per day smoker. Poor dentition. Works at [employer]. PHYSICAL EXAMINATION: GENERAL: Reveals a remarkably healthy-appearing female, in no acute distress. HEENT: Normal. HEART AND LUNGS: Clear. ABDOMEN: Soft, nontender. PELVIS: Deferred. CT was done. VITAL SIGNS: Blood pressure 120/80, weight 172 pounds, 65 inches tall. BMI 28. ALLERGIES: No known allergies. IMPRESSION: Postoperative pelvic abscess. PLAN: CT-directed needle aspiration and drainage and IV antibiotics. DICTATING PHYSICIAN: HOMERO CORNELL M.D. [id number] PHY#: [id number] ID: [id number] JOB#: [id number] ACCT: [id number] cc: >
[2018-01-12] MEDS ORDERED: FAMOTIDINE 20 MG TABLET PO ONE (16:30)
[2018-01-12] MEDS: IBUPROFEN 800 MG TABLET PO PRN (17:07)
[2018-01-13] MEDS: PIPERACILLIN SODIUM/TAZOBACTAM 3.375 GM in NORMAL SALINE 100 ML IV SCH ×4 (03:09→21:00)
[2018-01-13] MEDS: IBUPROFEN 800 MG TABLET PO PRN ×2 (03:22→17:47)
[2018-01-13] MEDS: FAMOTIDINE 20 MG TABLET PO SCH (07:28)
[2018-01-13 09:09] LABS: HEMATOCRIT 23.6 % (36.0-47.0); MEAN CORPUSCULAR HEMOGLOBIN 19.9 pg (27.0-33.4); MEAN CORPUSCULAR HGB CONC 32.4 g/dL (32.0-36.0); MEAN CORPUSCULAR VOLUME 61 fl (80-97); PLATELET COUNT 669 10^3/uL (150-450); RED BLOOD COUNT 3.85 10^6/uL (3.72-5.28); RED CELL DISTRIBUTION WIDTH 14.6 % (11.5-14.0); WHITE BLOOD COUNT 15.3 10^3/uL (4.0-10.5)
[2018-01-13 09:21] LABS: HEMOGLOBIN 7.7 g/dL (12.0-15.5)
[2018-01-13 09:32] LABS: ANION GAP 12 (5-19); BLOOD UREA NITROGEN 11 mg/dL (7-20); CALCIUM 8.6 mg/dL (8.4-10.2); CARBON DIOXIDE 30 mmol/L (22-30); CHLORIDE 96 mmol/L (98-107); GLUCOSE 103 mg/dL (75-110); POTASSIUM 3.4 mmol/L (3.6-5.0); SODIUM 138.4 mmol/L (137-145)
[2018-01-13] MEDS: ONDANSETRON HCL INJ/PF 4 MG/2 ML SDV IV PRN (13:35)
--- NOTE | 2018-01-13 15:30 | RADIOLOGY REPORT (SQ) ---
EXAM DESCRIPTION: CT ABD/PELVIS ORAL ONLY COMPLETED DATE/TIME: 01/13/2018 3:11 pm REASON FOR STUDY: FU CT/drain eval removal ? COMPARISON: 01/11/2018. TECHNIQUE: CT scan of the abdomen and pelvis performed with oral contrast and no intravenous contras t. Images reviewed with lung, soft tissue, and bone windows. Reconstructed coronal and sagittal MPR i mages reviewed. All images stored on PACS. All CT scanners at this facility use dose modulation, iterative reconstruction, and/or weight based d osing when appropriate to reduce radiation dose to as low as reasonably achievable (ALARA). [facility]: Dose Right [facility]: CareDose [facility]: Dose Right [facility]: Teradose 4D [facility]: smsPREP RADIATION DOSE: CT Rad equipment meets quality standard of care and radiation dose reduction techniq ues were employed. CTDIvol: 8.9 mGy. DLP: 521 mGy-cm. mGy. LIMITATIONS: None. FINDINGS: LOWER CHEST: Bilateral pleural effusions with airspace disease, more prominent on the righ t. NON-CONTRASTED LIVER, SPLEEN, ADRENALS: Evaluation limited by lack of IV contrast. No identified sign ificant masses. PANCREAS: No masses. No peripancreatic inflammatory changes. GALLBLADDER: No identified stones by CT criteria. No inflammatory changes to suggest cholecystitis. RIGHT KIDNEY AND URETER: No suspicious masses. Assessment limited by lack of IV contrast. No signif icant calcifications. No hydronephrosis or hydroureter. LEFT KIDNEY AND URETER: No suspicious masses. Assessment limited by lack of IV contrast. No signifi cant calcifications. No hydronephrosis or hydroureter. AORTA AND RETROPERITONEUM: No aneurysm. No retroperitoneal masses or adenopathy. BOWEL AND PERITONEAL CAVITY: Diffusely dilated small bowel with minimal progression of oral contrast. : Not distended. Trace free fluid in the upper abdomen. APPENDIX: Not visualized. PELVIS, BLADDER, AND ABDOMINAL WALL: Percutaneous drainage catheter remains in place. There is decre ase in size of the pelvic abscess but not yet fully resolved. BONES: No significant findings. OTHER: No other significant finding. IMPRESSION: 1. DECREASE IN SIZE OF THE PELVIC ABSCESS BUT RESIDUAL COLLECTION REMAINS AND THE ABSCESS HAS NOT FUL LY RESOLVED. 2. DIFFUSELY DILATED SMALL BOWEL WITH SLOW PROGRESSION OF CONTRAST. FINDINGS ARE MOST SUGGESTIVE OF DISTAL SMALL BOWEL OBSTRUCTION. 3. BILATERAL PLEURAL EFFUSIONS WITH PROBABLE BASILAR ATELECTASIS, SLIGHTLY INCREASED FROM THE PRIOR S TUDY. TECHNICAL DOCUMENTATION: JOB ID: [id number] Quality ID # [id number]: Final reports with documentation of one or more dose reduction techniques (e.g., Au tomated exposure control, adjustment of the mA and/or kV according to patient size, use of iterative reconstruction technique) 2010 [employer]- All Rights Reserved Reading location - IP/workstation name: [email or web address]
--- NOTE | 2018-01-13 20:56 | PDOC CONSULTATION ---
Consultation Consult Date: 01/13/18 Attending physician:: HOMERO CORNELL Consult reason:: Rule out bowel obstruction. History of Present Illness Admission Date/PCP: 01/13/18 17:00 Patient complains of: Abdominal bloating History of Present Illness: MINNIE FAIRCHILD is a 42 year old female status post vaginal hysterectomy for menorrhagia 2 weeks ago. Patient initially did well and then developed lower abdominal pain and was subsequently admitted 5 days postoperatively for IV antibiotics. She responded well with antibiotics and was subsequently discharged home but a couple days later she developed diarrhea as well as nausea and vomiting along with generalized malaise. Patient was readmitted noted with a pelvic abscess which was drained. After drainage of the pelvic abscess she has felt better with minimal abdominal discomfort. She does feel generalized abdominal bloating but has been eating during her hospital stay with only one episode of emesis with her oral contrast for her CT scan today. She has continued to have diarrhea during her hospital stay. Patient has no history of diabetes. Past Medical History Cardiac Medical History: Denies: Coronary Artery Disease, Myocardial Infarction, Hypertension Pulmonary Medical History: Denies: Asthma, Bronchitis, Chronic Obstructive Pulmonary Disease (COPD), Pneumonia Neurological Medical History: Reports: Migraine Denies: Seizures Musculoskeltal Medical History: Denies: Arthritis Hematology: Reports: Anemia Past Surgical History Past Surgical History: Reports: Hysterectomy, Tonsillectomy Social History Smoking Status: Unknown if Ever Smoked Frequency of Alcohol Use: None Hx Recreational Drug Use: No Drugs: None Hx Prescription Drug Abuse: No - Advance Directive Resuscitation Status: Full Code Family History Family History: Arthritis, CAD, DM, Hyperlipidemia, Hypertension Parental Family History Reviewed: No Children Family History Reviewed: No Sibling(s) Family History Reviewed.: No Medication/Allergy Home Medications: Ibuprofen [Motrin 800 mg Tablet] 800 mg PO Q8HP PRN 01/11/18 Oxycodone HCl/Acetaminophen [Oxycodone-Acetaminophen 5-325] 1 tab PO Q6HP PRN Allergies/Adverse Reactions: No Known Allergies Allergy (Verified 01/11/18 07:52) Physical Exam Vital Signs: Temp Pulse Resp BP Pulse Ox 99.1 F 96 15 116/57 L 98 01/13/18 16:00 01/13/18 16:00 01/13/18 16:00 01/13/18 16:00 01/13/18 16:00 General appearance: PRESENT: no acute distress, cooperative Eye exam: PRESENT: conjunctiva pink Neck exam: PRESENT: other - Neck supple with no palpable masses Respiratory exam: PRESENT: clear to auscultation prakash Cardiovascular exam: PRESENT: RRR GI/Abdominal exam: PRESENT: other - Soft, mildly distended. Very minimal tenderness in the lower abdomen. No peritoneal signs. Drain in place with slightly turbid fluid output. Extremities exam: PRESENT: other - No swelling and no tenderness. Neurological exam: PRESENT: alert, awake Psychiatric exam: PRESENT: appropriate affect Results Impressions: Percutaneous Drainage 01/11/18 00:00 IMPRESSION: Successful CT-guided drainage of pelvic abscess. Abdomen/Pelvis CT 01/13/18 00:00 IMPRESSION: 1. DECREASE IN SIZE OF THE PELVIC ABSCESS BUT RESIDUAL COLLECTION REMAINS AND THE ABSCESS HAS NOT FULLY RESOLVED. 2. DIFFUSELY DILATED SMALL BOWEL WITH SLOW PROGRESSION OF CONTRAST. FINDINGS ARE MOST SUGGESTIVE OF DISTAL SMALL BOWEL OBSTRUCTION. 3. BILATERAL PLEURAL EFFUSIONS WITH PROBABLE BASILAR ATELECTASIS, SLIGHTLY INCREASED FROM THE PRIOR STUDY. Assessment & Plan - Diagnosis (1) Pelvic abscess Is this a current diagnosis for this admission?: Yes Plan: Postoperative pelvic abscess status post successful drainage. Likely small bowel ileus pattern due to her pelvic infection. although I cannot exclude a low-grade partial small bowel obstruction, I do not think surgical intervention is warranted especially since she has been eating and has been having diarrhea. Will check stool for C. difficile toxin. Will back off her diet to clear liquids for now. Will check a abdominal x-ray in the morning. Appendicitis with perforation is not completely excluded since the appendix not clearly visualized on the CT scan. However the more likely scenario is pelvic abscess after her hysterectomy. Even if it were appendicitis with perforation I would treat her exactly the way she is being managed currently, that is, abscess drainage and antibiotics. Surgical intervention at this point would not be indicated, even for perforated appendix. General surgery will follow along with you.
[2018-01-14] MEDS: PIPERACILLIN SODIUM/TAZOBACTAM 3.375 GM in NORMAL SALINE 100 ML IV SCH ×3 (02:30→15:01)
[2018-01-14] MEDS: ONDANSETRON HCL INJ/PF 4 MG/2 ML SDV IV PRN (02:48)
[2018-01-14 07:33] LABS: ABSOLUTE EOSINOPHILS # (AUTO) 0.2 10^3/uL (0.0-0.6); ABSOLUTE NEUT (AUTO) 14.7 10^3/uL (1.7-8.2); BASOPHILS % (AUTO) 0.3 % (0-2); EOSINOPHILS % (AUTO) 1.5 % (0-6); HEMATOCRIT 23.4 % (36.0-47.0); LYMPHOCYTES % (AUTO) 5.9 % (13-45); MEAN CORPUSCULAR HEMOGLOBIN 20.1 pg (27.0-33.4); MEAN CORPUSCULAR VOLUME 61 fl (80-97); MONOCYTES % (AUTO) 5.7 % (3-13); PLATELET COUNT 750 10^3/uL (150-450); RED BLOOD COUNT 3.85 10^6/uL (3.72-5.28); RED CELL DISTRIBUTION WIDTH 14.3 % (11.5-14.0); SEGMENTED NEUTROPHILS % (AUTO) 86.6 % (42-78); TOTAL CELLS COUNTED % (AUTO) 100 %; WHITE BLOOD COUNT 16.9 10^3/uL (4.0-10.5)
[2018-01-14 07:44] LABS: HEMOGLOBIN 7.7 g/dL (12.0-15.5)
[2018-01-14] MEDS: FAMOTIDINE 20 MG TABLET PO SCH (07:54)
[2018-01-14 07:59] LABS: HYPOCHROMASIA 1+; OVALOCYTES 1+; PLATELET COMMENT INCREASED; POIKILOCYTOSIS 1+; POLYCHROMASIA SLIGHT; TARGET CELLS SLIGHT
--- NOTE | 2018-01-14 08:39 | RADIOLOGY REPORT (SQ) ---
EXAM DESCRIPTION: ABDOMEN 2 VIEWS COMPLETED DATE/TIME: 01/14/2018 8:30 am REASON FOR STUDY: f/u sb dilation COMPARISON: CT dated 01/13/2018. NUMBER OF VIEWS: Two views. TECHNIQUE: Supine and erect/decubitus radiographic images of the abdomen acquired. LIMITATIONS: None. FINDINGS: FREE AIR: None. No abnormal gas collections. LUNG BASES: Clear. BOWEL GAS PATTERN: Dilated small bowel with air-fluid levels. Small amount of contrast is now presen t in the colon. CALCIFICATIONS: No suspicious calcifications. SOFT TISSUES: No gross mass or suggestion of organomegaly. HARDWARE: Catheter in the pelvis. BONES: No acute fracture. No worrisome bone lesions. OTHER: No other significant finding. IMPRESSION: 1. SMALL BOWEL OBSTRUCTION. THERE IS SOME CONTRAST NOW PRESENT IN THE COLON. 2. PERCUTANEOUS DRAINAGE CATHETER IN THE PELVIS. TECHNICAL DOCUMENTATION: JOB ID: [id number] [employer]- All Rights Reserved Reading location - IP/workstation name: [email or web address]
[2018-01-14] MEDS: RINGERS SOLUTION,LACTATED 1,000 ML IV PRN (15:00)
--- NOTE | 2018-01-14 16:05 | Progress Note ---
Provider Note Provider Note: ID Consult Note- I was asked to review the culture results of this patient and to give antibiotic recommendations. The patient developed a pelvic abscess following recent hysterectomy for fibroids. Cultures done at the time of the drainage procedure grew mixed slava including Actinomyces, Peptostreptococcus, Prevotella, and Bacteroides fragilis . The patient currently has a drain in place and is receiving Zosyn. Recommendations: 1. Discontinue Zosyn. 2. Begin Unasyn 3 gm IV q 6 hours. This drug will cover the anaerobic bacteria as well as the Actinomyces. Penicillin is the drug of choice for Actinomyces. Once patient is ready for discharge, would send home with Augmentin 500 mg po TID. Recommend treating for at least two weeks total. Occasionally, we need to treat actinomyces infections for a prolonged period of time, but I doubt that this patient will need a prolonged course because Actinomyces is part of a mixed infection. Likely, the drainage procedure itself is the important aspect in treatment. Wm Naik MD Pager: [phone]
[2018-01-14] MEDS: AMPICILLIN SODIUM/SULBACTAM NA 3 GM in NORMAL SALINE 100 ML IV SCH ×2 (18:40→23:46)
--- NOTE | 2018-01-14 21:40 | PDOC PROGRESS REPORT ---
Subjective Progress Note for:: 01/14/18 Subjective:: Mild pains at the pubic area and around drain catheter Reason For Visit: PARTIAL SMALL BOWEL OBSTRUCTION/ABSCESS Physical Exam Vital Signs: Temp Pulse Resp BP Pulse Ox 99.2 F 85 20 124/65 96 01/14/18 20:00 01/14/18 20:00 01/14/18 20:00 01/14/18 20:00 01/14/18 20:00 Intake & Output 01/13/18 01/14/18 01/15/18 06:59 06:59 06:59 Intake Total 177 Output Total 0 Balance 177 Weight 82 kg Exam: Abdomen has mild tenderness towards the pubic area Results Laboratory Results: 01/14/18 06:56 01/14/18 06:56 WBC 16.9 H RBC 3.85 Hgb 7.7 L Hct 23.4 L MCV 61 L MCH 20.1 L MCHC 33.0 RDW 14.3 H Plt Count 750 H Seg Neutrophils % 86.6 H Lymphocytes % 5.9 L Monocytes % 5.7 Eosinophils % 1.5 Basophils % 0.3 Absolute Neutrophils 14.7 H Absolute Lymphocytes 1.0 Absolute Monocytes 1.0 Absolute Eosinophils 0.2 Absolute Basophils 0.0 Impressions: Percutaneous Drainage 01/11/18 00:00 IMPRESSION: Successful CT-guided drainage of pelvic abscess. Abdomen/Pelvis CT 01/13/18 00:00 IMPRESSION: 1. DECREASE IN SIZE OF THE PELVIC ABSCESS BUT RESIDUAL COLLECTION REMAINS AND THE ABSCESS HAS NOT FULLY RESOLVED. 2. DIFFUSELY DILATED SMALL BOWEL WITH SLOW PROGRESSION OF CONTRAST. FINDINGS ARE MOST SUGGESTIVE OF DISTAL SMALL BOWEL OBSTRUCTION. 3. BILATERAL PLEURAL EFFUSIONS WITH PROBABLE BASILAR ATELECTASIS, SLIGHTLY INCREASED FROM THE PRIOR STUDY. Abdomen X-Ray 01/14/18 07:00 IMPRESSION: 1. SMALL BOWEL OBSTRUCTION. THERE IS SOME CONTRAST NOW PRESENT IN THE COLON. 2. PERCUTANEOUS DRAINAGE CATHETER IN THE PELVIS. Assessment & Plan - Time Time Spent with patient: 15-24 minutes - Plan Summary Plan Summary: Patient has Actinomyces on the c/s. ID at [facility] was consulted. He called me on the phone and suggested placing patient on UNASYN 3 gms q 6 hrs. This should be continued on Augmentin on discharged for at least 2 more weeks
[2018-01-15] MEDS: RINGERS SOLUTION,LACTATED 1,000 ML IV PRN ×2 (05:35→15:44)
[2018-01-15] MEDS: AMPICILLIN SODIUM/SULBACTAM NA 3 GM in NORMAL SALINE 100 ML IV SCH ×3 (05:35→18:17)
[2018-01-15 07:16] LABS: HEMATOCRIT 21.1 % (36.0-47.0); MEAN CORPUSCULAR HGB CONC 32.3 g/dL (32.0-36.0); MEAN CORPUSCULAR VOLUME 62 fl (80-97); PLATELET COUNT 726 10^3/uL (150-450); RED CELL DISTRIBUTION WIDTH 14.4 % (11.5-14.0); WHITE BLOOD COUNT 19.5 10^3/uL (4.0-10.5)
[2018-01-15 07:26] LABS: ANION GAP 15 (5-19); BLOOD UREA NITROGEN 9 mg/dL (7-20); CALCIUM 8.3 mg/dL (8.4-10.2); CARBON DIOXIDE 26 mmol/L (22-30); CHLORIDE 96 mmol/L (98-107); GLUCOSE 82 mg/dL (75-110); POTASSIUM 3.5 mmol/L (3.6-5.0)
[2018-01-15 08:37] LABS: HEMOGLOBIN 6.8 g/dL (12.0-15.5)
[2018-01-15] MEDS: FAMOTIDINE 20 MG TABLET PO SCH (10:13)
--- NOTE | 2018-01-15 11:04 | PDOC PROGRESS REPORT ---
Subjective Progress Note for:: 01/15/18 Reason For Visit: PARTIAL SMALL BOWEL OBSTRUCTION/ABSCESS Patient states she feels a little better; she has had a lot of diarrhea, feels weak. Difficile titer negative. Start on a diet. Percutaneous drain still in with minimal serous drainage Physical Exam Vital Signs: Temp Pulse Resp BP Pulse Ox 99.0 F 90 16 134/72 H 95 01/15/18 08:00 01/15/18 08:00 01/15/18 08:00 01/15/18 08:00 01/15/18 08:00 Intake & Output 01/14/18 01/15/18 01/16/18 06:59 06:59 07:59 Intake Total 177 1720 Output Total 0 10 Balance 177 1720 -10 Weight 82 kg General appearance: PRESENT: mild distress Exam: Looks weak GI/Abdominal exam: PRESENT: other - Soft, no peritoneal signs no rigidity. Drain in place, no inflammation at tube site Results Laboratory Results: 01/15/18 06:49 01/15/18 06:49 01/15/18 01/15/18 06:49 06:49 WBC 19.5 H RBC 3.40 L Hgb 6.8 L Hct 21.1 L MCV 62 L MCH 20.0 L MCHC 32.3 RDW 14.4 H Plt Count 726 H Sodium 137.0 Potassium 3.5 L Chloride 96 L Carbon Dioxide 26 Anion Gap 15 BUN 9 Creatinine 0.72 Est GFR ( Amer) > 60 Est GFR (Non-Af Amer) > 60 Glucose 82 Calcium 8.3 L Impressions: Percutaneous Drainage 01/11/18 00:00 IMPRESSION: Successful CT-guided drainage of pelvic abscess. Abdomen/Pelvis CT 01/13/18 00:00 IMPRESSION: 1. DECREASE IN SIZE OF THE PELVIC ABSCESS BUT RESIDUAL COLLECTION REMAINS AND THE ABSCESS HAS NOT FULLY RESOLVED. 2. DIFFUSELY DILATED SMALL BOWEL WITH SLOW PROGRESSION OF CONTRAST. FINDINGS ARE MOST SUGGESTIVE OF DISTAL SMALL BOWEL OBSTRUCTION. 3. BILATERAL PLEURAL EFFUSIONS WITH PROBABLE BASILAR ATELECTASIS, SLIGHTLY INCREASED FROM THE PRIOR STUDY. Abdomen X-Ray 01/14/18 07:00 IMPRESSION: 1. SMALL BOWEL OBSTRUCTION. THERE IS SOME CONTRAST NOW PRESENT IN THE COLON. 2. PERCUTANEOUS DRAINAGE CATHETER IN THE PELVIS. Assessment & Plan - Diagnosis (1) Pelvic abscess Is this a current diagnosis for this admission?: Yes Plan: Now status post percutaneous drainage with minimal output; clinically weak, possibly improved incrementally. Still has leukocytosis. On Unasyn for multiple anaerobes growing from abscess culture Recommendations: 1. Assessment and plan with Dr. West; leave drain in for now 2. Agree with starting patient on diet. 3. We will continue to follow patient closely, and recommendations if indicated.
[2018-01-15] MEDS: ONDANSETRON HCL INJ/PF 4 MG/2 ML SDV IV PRN (20:06)
[2018-01-16] MEDS: AMPICILLIN SODIUM/SULBACTAM NA 3 GM in NORMAL SALINE 100 ML IV SCH ×4 (00:43→22:26)
[2018-01-16] MEDS: IBUPROFEN 800 MG TABLET PO PRN (05:26)
[2018-01-16] MEDS: RINGERS SOLUTION,LACTATED 1,000 ML IV PRN ×2 (05:27→20:43)
[2018-01-16 06:37] LABS: HEMATOCRIT 20.8 % (36.0-47.0); MEAN CORPUSCULAR HEMOGLOBIN 19.7 pg (27.0-33.4); MEAN CORPUSCULAR VOLUME 62 fl (80-97); PLATELET COUNT 746 10^3/uL (150-450); RED BLOOD COUNT 3.38 10^6/uL (3.72-5.28); RED CELL DISTRIBUTION WIDTH 14.1 % (11.5-14.0); WHITE BLOOD COUNT 22.4 10^3/uL (4.0-10.5)
[2018-01-16 06:49] LABS: HEMOGLOBIN 6.6 g/dL (12.0-15.5)
[2018-01-16 06:58] LABS: POTASSIUM 3.4 mmol/L (3.6-5.0); SODIUM 136.2 mmol/L (137-145)
[2018-01-16 07:24] LABS: ABSOLUTE LYMPHOCYTES# (MANUAL) 1.6 10^3/uL (0.5-4.7); ABSOLUTE MONOCYTES # (MANUAL) 0.7 10^3/uL (0.1-1.4); ABSOLUTE NEUTROPHILS# (MANUAL) 20.2 10^3/uL (1.7-8.2); BAND NEUTROPHILS % (MANUAL) 3 % (3-5); BASOPHILS % (MANUAL) 0 % (0-2); EOSINOPHILS % (MANUAL) 0 % (0-6); LYMPHOCYTES % (MANUAL) 5 % (13-45); MONOCYTES % (MANUAL) 3 % (3-13); SEGMENTED NEUTROPHILS % (MAN) 87 % (42-78); TOTAL CELLS COUNTED 100
[2018-01-16 07:27] LABS: ANISOCYTOSIS SLIGHT; HYPOCHROMASIA 1+; POLYCHROMASIA SLIGHT; ROULEAUX SLIGHT
[2018-01-16 07:28] LABS: PLATELET COMMENT INCREASED
[2018-01-16] MEDS: FAMOTIDINE 20 MG TABLET PO SCH (08:24)
--- NOTE | 2018-01-16 09:28 | RADIOLOGY REPORT (SQ) ---
EXAM DESCRIPTION: CHEST PA/LAT COMPLETED DATE/TIME: 01/16/2018 9:05 am REASON FOR STUDY: Possible PE COMPARISON: 01/05/2018. EXAM PARAMETERS: NUMBER OF VIEWS: two views TECHNIQUE: Digital Frontal and Lateral radiographic views of the chest acquired. RADIATION DOSE: NA LIMITATIONS: none FINDINGS: LUNGS AND PLEURA: Basilar atelectasis with small bilateral pleural effusions. MEDIASTINUM AND HILAR STRUCTURES: No masses or contour abnormalities. HEART AND VASCULAR STRUCTURES: Heart normal size. No evidence for failure. BONES: No acute findings. HARDWARE: None in the chest. OTHER: No other significant finding. IMPRESSION: BASILAR ATELECTASIS WITH SMALL BILATERAL PLEURAL EFFUSIONS. TECHNICAL DOCUMENTATION: JOB ID: [id number] [employer]- All Rights Reserved Reading location - IP/workstation name: [email or web address]
--- NOTE | 2018-01-16 11:44 | PDOC PROGRESS REPORT ---
Subjective Progress Note for:: 01/16/18 Reason For Visit: PARTIAL SMALL BOWEL OBSTRUCTION/ABSCESS Hospital day 4 for the patient with intrapelvic sepsis; unable to tolerate clear liquids, vomited last night; otherwise feels about the same. No fever, chills, no pain, and no pain medications taken. She is voiding. She is still having loose diarrhea muddy stools Physical Exam Vital Signs: Temp Pulse Resp BP Pulse Ox 98.4 F 75 18 137/64 H 97 01/16/18 07:46 01/16/18 07:51 01/16/18 07:46 01/16/18 07:46 01/16/18 07:51 Intake & Output 01/15/18 01/16/18 01/17/18 05:59 06:59 06:59 Intake Total Output Total Balance Weight General appearance: PRESENT: no acute distress, other - Patient very calm cooperative in no distress GI/Abdominal exam: PRESENT: other - Abdomen is completely benign. Pus in drainage tubing; drain site looks fine; no peritoneal signs no rigidity no guarding. Abdomen less distended compared to yesterday. Bowel sounds hypoactive Results Laboratory Results: 01/16/18 06:04 01/16/18 06:04 01/16/18 01/16/18 06:04 06:04 WBC 22.4 H RBC 3.38 L Hgb 6.6 L Hct 20.8 L MCV 62 L MCH 19.7 L MCHC 32.0 RDW 14.1 H Plt Count 746 H Seg Neutrophils % Not Reportable Lymphocytes % Not Reportable Monocytes % Not Reportable Eosinophils % Not Reportable Basophils % Not Reportable Absolute Neutrophils Not Reportable Absolute Lymphocytes Not Reportable Absolute Monocytes Not Reportable Absolute Eosinophils Not Reportable Absolute Basophils Not Reportable Sodium 136.2 L Potassium 3.4 L Chloride 96 L Carbon Dioxide 29 Anion Gap 11 Impressions: Percutaneous Drainage 01/11/18 00:00 IMPRESSION: Successful CT-guided drainage of pelvic abscess. Abdomen/Pelvis CT 01/13/18 00:00 IMPRESSION: 1. DECREASE IN SIZE OF THE PELVIC ABSCESS BUT RESIDUAL COLLECTION REMAINS AND THE ABSCESS HAS NOT FULLY RESOLVED. 2. DIFFUSELY DILATED SMALL BOWEL WITH SLOW PROGRESSION OF CONTRAST. FINDINGS ARE MOST SUGGESTIVE OF DISTAL SMALL BOWEL OBSTRUCTION. 3. BILATERAL PLEURAL EFFUSIONS WITH PROBABLE BASILAR ATELECTASIS, SLIGHTLY INCREASED FROM THE PRIOR STUDY. Abdomen X-Ray 01/14/18 07:00 IMPRESSION: 1. SMALL BOWEL OBSTRUCTION. THERE IS SOME CONTRAST NOW PRESENT IN THE COLON. 2. PERCUTANEOUS DRAINAGE CATHETER IN THE PELVIS. Chest X-Ray 01/16/18 00:00 IMPRESSION: BASILAR ATELECTASIS WITH SMALL BILATERAL PLEURAL EFFUSIONS. Assessment & Plan - Diagnosis (1) Pelvic abscess Is this a current diagnosis for this admission?: Yes Plan: Hospital day 4 for patient with pelvic abscess status post percutaneous drainage ; patient still not out of the henry. Clinically she looks about the same may be a little better, but continues to have leukocytosis anemia and mild hypoxia. Recommendations: 1. Chest x-ray this morning revealed bilateral effusions, small, but no isi infiltrate 2. Agree with plans for transfusion even drifting hematocrit due to blood loss anemia and dilutional effect 3. Believe she has an ileus rather than a small bowel obstruction; therefore we will hold off on nasogastric tube placement; encouraged her to get up and walk which she is enthused about doing. 4. Will expand anaerobic coverage by adding Flagyl 500 mg IV 3 times a day 5. Discussed the above with nursing staff and Dr. West, COLLECTIONS CLERK physician. I suggested we hold the gains, hold off on any further CT imaging this time
[2018-01-16] MEDS ORDERED: METRONIDAZOLE 500 MG/NS RTU 100 ML IV SCH (14:00)
[2018-01-16] MEDS: ONDANSETRON HCL INJ/PF 4 MG/2 ML SDV IV PRN (17:08)
[2018-01-17] MEDS: RINGERS SOLUTION,LACTATED 1,000 ML IV PRN (05:16)
[2018-01-17] MEDS ORDERED: METRONIDAZOLE 500 MG/NS RTU 100 ML IV SCH (06:00)
[2018-01-17] MEDS ORDERED: AMPICILLIN SODIUM/SULBACTAM NA 3 GM in NORMAL SALINE 100 ML IV SCH ×3 (06:00→12:00)
[2018-01-17 08:25] LABS: HEMATOCRIT 27.2 % (36.0-47.0); MEAN CORPUSCULAR HEMOGLOBIN 21.6 pg (27.0-33.4); MEAN CORPUSCULAR HGB CONC 33.1 g/dL (32.0-36.0); MEAN CORPUSCULAR VOLUME 65 fl (80-97); PLATELET COUNT 659 10^3/uL (150-450); RED BLOOD COUNT 4.16 10^6/uL (3.72-5.28); WHITE BLOOD COUNT 21.7 10^3/uL (4.0-10.5)
[2018-01-17 08:42] LABS: POTASSIUM 3.7 mmol/L (3.6-5.0); SODIUM 138.7 mmol/L (137-145)
[2018-01-17 09:00] LABS: ABSOLUTE LYMPHOCYTES# (MANUAL) 1.5 10^3/uL (0.5-4.7); ABSOLUTE MONOCYTES # (MANUAL) 0.4 10^3/uL (0.1-1.4); ABSOLUTE NEUTROPHILS# (MANUAL) 19.7 10^3/uL (1.7-8.2); BAND NEUTROPHILS % (MANUAL) 1 % (3-5); BASOPHILS % (MANUAL) 0 % (0-2); EOSINOPHILS % (MANUAL) 0 % (0-6); LYMPHOCYTES % (MANUAL) 7 % (13-45); METAMYELOCYTES % (MANUAL) 1 % (0); MONOCYTES % (MANUAL) 2 % (3-13); NUCLEATED RED BLOOD CELLS 1 /100 WBC (0); SEGMENTED NEUTROPHILS % (MAN) 89 % (42-78); TOTAL CELLS COUNTED 100
[2018-01-17 09:02] LABS: ANISOCYTOSIS 1+; HYPOCHROMASIA SLIGHT; PLATELET COMMENT INCREASED; POLYCHROMASIA SLIGHT; TOXIC GRANULATION 1+
--- NOTE | 2018-01-17 09:38 | TRANSFER SUMMARY E ---
Transfer Summary NAME: MINNIE FAIRCHILD : 1975 AGE: 42Y ADMITTED: 01/13/2018 TRANSFERRED: 01/17/2018 HISTORY: A 42-year-old female who underwent a total vaginal hysterectomy, Gay culdoplasty on 12/29/2017 for a fibroid uterus that weighed 171 grams. Pathology demonstrated adenomyosis, uterine leiomyoma, no cervical or endometrial neoplasia. Ovaries were left in situ. HOSPITAL COURSE: The patient did well, discharged within 24 hours and returned with leukocytosis and fever day 6 of her postop. Evaluation and CT at that time demonstrated induration mostly in the right pelvic region. Concern about appendicitis was of some concern, but she was admitted. IV gent and tobin was given and she defervesced, afebrile. White count of 17,000 at time of discharge with no pain. She was discharged for outpatient followup. Within 4 days, she was seen in the ER. CT scan demonstrated a right pelvic abscess 7 x 4 cm. She was brought in and a drain placed percutaneously productive of approximately 150 mL of pus. This was cultured. Two anaerobes and a fungal infection were diagnosed. She had been placed on Zosyn during this hospitalization up until that time and clinically improved. She remained afebrile with elevated white counts during this time frame. White count defervesced to 17,000, and after consultation with Infectious Disease, she was switched over to Unasyn IV. Since the switch to Unasyn, the patient felt an ileus during this time frame, had some nausea, been n.p.o. 48 hours prior to discharge with resolution of the ileus itself. Her white count still remains 22,000. Review of her old CT scan that was done in followup for her drain possible removal on 01/13 demonstrated possibility of a pus pocket that was out of reach of pigtail catheter. This may explain her leukocytosis and rather poor progress. After discussion with radiologist, I am not interested in doing any more intervention at this level. This part of the surgery *------* radiologic intervention may be considered at tertiary care center. Labs and films will be included in the transfer note. FINAL IMPRESSION: 1. Postoperative pelvic abscess. 2. Leukocytosis. Transfer is to [facility] in [place]. This is greatly appreciated. DICTATING PHYSICIAN: HOMERO CORNELL M.D. [id number] PHY#: [id number] ID: [id number] JOB#: [id number] ACCT: [id number] cc:HOMERO CORNELL M.D. >
[2018-01-17] MEDS: FAMOTIDINE 20 MG TABLET PO SCH (09:52)
[2018-01-17] MEDS ORDERED: AMPICILLIN SODIUM/SULBACTAM NA 3 GM in NORMAL SALINE 100 ML IV ONE (10:00)
[2018-01-17 12:01] VITALS: BP 140/63
--- NOTE | 2018-01-17 12:32 | PDOC PROGRESS REPORT ---
Subjective Progress Note for:: 01/17/18 Subjective:: having diarrhea x2 last night. No N/V Reason For Visit: PARTIAL SMALL BOWEL OBSTRUCTION/ABSCESS Physical Exam Vital Signs: Temp Pulse Resp BP Pulse Ox 98.4 F 72 14 140/63 H 96 01/17/18 11:20 01/17/18 11:20 01/17/18 11:20 01/17/18 11:20 01/17/18 11:20 Intake & Output 01/16/18 01/17/18 01/18/18 06:59 06:59 06:59 Intake Total 600 Output Total 1007 160 Balance -407 -160 Weight General appearance: PRESENT: no acute distress, well-developed, well-nourished Head exam: PRESENT: atraumatic, normocephalic Eye exam: PRESENT: conjunctiva pink, EOMI, PERRLA. ABSENT: scleral icterus Ear exam: PRESENT: normal external ear exam Mouth exam: PRESENT: moist, tongue midline Neck exam: ABSENT: carotid bruit, JVD, lymphadenopathy, thyromegaly Respiratory exam: PRESENT: clear to auscultation prakash. ABSENT: rales, rhonchi, wheezes Cardiovascular exam: PRESENT: RRR. ABSENT: diastolic murmur, rubs, systolic murmur Pulses: PRESENT: normal dorsalis pedis pul Vascular exam: PRESENT: normal capillary refill GI/Abdominal exam: PRESENT: normal bowel sounds, soft. ABSENT: distended, guarding, mass, organolmegaly, rebound, tenderness Rectal exam: PRESENT: deferred Extremities exam: PRESENT: full ROM. ABSENT: calf tenderness, clubbing, pedal edema Neurological exam: PRESENT: alert, awake, oriented to person, oriented to place , oriented to time, oriented to situation, CN II-XII grossly intact. ABSENT: motor sensory deficit Psychiatric exam: PRESENT: appropriate affect, normal mood. ABSENT: homicidal ideation, suicidal ideation Skin exam: PRESENT: dry, intact, warm. ABSENT: cyanosis, rash Results Laboratory Results: 01/17/18 07:48 01/17/18 07:48 01/16/18 01/17/18 01/17/18 10:00 07:48 07:48 WBC 21.7 H RBC 4.16 Hgb 9.0 L D Hct 27.2 L MCV 65 L MCH 21.6 L MCHC 33.1 RDW 18.0 H Plt Count 659 H Seg Neutrophils % Not Reportable Lymphocytes % Not Reportable Monocytes % Not Reportable Eosinophils % Not Reportable Basophils % Not Reportable Absolute Neutrophils Not Reportable Absolute Lymphocytes Not Reportable Absolute Monocytes Not Reportable Absolute Eosinophils Not Reportable Absolute Basophils Not Reportable Sodium 138.7 Potassium 3.7 Chloride 99 Carbon Dioxide 25 Anion Gap 15 Blood Type A NEGATIVE Antibody Screen NEGATIVE Impressions: Percutaneous Drainage 01/11/18 00:00 IMPRESSION: Successful CT-guided drainage of pelvic abscess. Abdomen/Pelvis CT 01/13/18 00:00 IMPRESSION: 1. DECREASE IN SIZE OF THE PELVIC ABSCESS BUT RESIDUAL COLLECTION REMAINS AND THE ABSCESS HAS NOT FULLY RESOLVED. 2. DIFFUSELY DILATED SMALL BOWEL WITH SLOW PROGRESSION OF CONTRAST. FINDINGS ARE MOST SUGGESTIVE OF DISTAL SMALL BOWEL OBSTRUCTION. 3. BILATERAL PLEURAL EFFUSIONS WITH PROBABLE BASILAR ATELECTASIS, SLIGHTLY INCREASED FROM THE PRIOR STUDY. Abdomen X-Ray 01/14/18 07:00 IMPRESSION: 1. SMALL BOWEL OBSTRUCTION. THERE IS SOME CONTRAST NOW PRESENT IN THE COLON. 2. PERCUTANEOUS DRAINAGE CATHETER IN THE PELVIS. Chest X-Ray 01/16/18 00:00 IMPRESSION: BASILAR ATELECTASIS WITH SMALL BILATERAL PLEURAL EFFUSIONS. Assessment & Plan - Time Time Spent with patient: 15-24 minutes - Plan Summary Plan Summary: D/W Dr West. Since patient appears to be not improving with persistent elevated WBC and GI not functioning well enough to really increase diet, i agree to transfer her to a tertiary facility.
== END 2018-01-17 12:33 | disposition short-term general hospital (02) | DRG 862 ==
LOC: ER 07:51 → EH 10:57 → INTOOBSV 10:57 → 2S 13:00 → OBSVTOIN 01-13 17:00
PROVIDERS: ADMIT Specialist; ATTEND Specialist
PROC: 0W9J30Z Drainage of Pelvic Cavity with Drainage Device, Percutaneous Approach (ICD-10-PCS; principal; 2018-01-11)
DX: T81.4XXA Infection following a procedure, initial encounter (principal); N73.3 Female acute pelvic peritonitis; K56.7 Ileus, unspecified; B95.4 Other streptococcus as the cause of diseases classified elsewhere; B96.89 Other specified bacterial agents as the cause of diseases classified elsewhere; B96.6 Bacteroides fragilis [B. fragilis] as the cause of diseases classified elsewhere; D64.9 Anemia, unspecified; D72.829 Elevated white blood cell count, unspecified; R09.02 Hypoxemia; R19.7 Diarrhea, unspecified; F17.200 Nicotine dependence, unspecified, uncomplicated; Z90.710 Acquired absence of both cervix and uterus; Z83.3 Family history of diabetes mellitus; Z82.61 Family history of arthritis; Z82.49 Family history of ischemic heart disease and other diseases of the circulatory system; Z87.42 Personal history of other diseases of the female genital tract
CPT/HCPCS: 36415; 36430; 71046; 74019; 74176; 74177; 75989; 80048; 80051; 80053; 81001; 83605; 83690; 85025; 85027; 86701; 86850; 86900; 86901; 86920; 87040; 87070; 87075; 87077; 87205; 87493; 96361; 96374; 99285; C1729; C1769; C1894; J0295; J2250; J2405; J2543; J2765; J3010; J3490; J7030; J7120; P9016

== ENCOUNTER → 2018-02-15 | Outpatient (CLI) | payer BC ==
[2018-02-15 13:55] LABS: ABSOLUTE BASOPHILS # (AUTO) 0.1 10^3/uL (0.0-0.2); ABSOLUTE EOSINOPHILS # (AUTO) 0.1 10^3/uL (0.0-0.6); ABSOLUTE LYMPHOCYTES (AUTO) 1.6 10^3/uL (0.5-4.7); ABSOLUTE MONOCYTES (AUTO) 0.5 10^3/uL (0.1-1.4); ABSOLUTE NEUT (AUTO) 5.9 10^3/uL (1.7-8.2); BASOPHILS % (AUTO) 1.2 % (0-2); EOSINOPHILS % (AUTO) 1.8 % (0-6); HEMATOCRIT 35.2 % (36.0-47.0); HEMOGLOBIN 11.4 g/dL (12.0-15.5); LYMPHOCYTES % (AUTO) 19.4 % (13-45); MEAN CORPUSCULAR HGB CONC 32.5 g/dL (32.0-36.0); MEAN CORPUSCULAR VOLUME 65 fl (80-97); MONOCYTES % (AUTO) 6.4 % (3-13); PLATELET COUNT 464 10^3/uL (150-450); RED BLOOD COUNT 5.43 10^6/uL (3.72-5.28); RED CELL DISTRIBUTION WIDTH 18.1 % (11.5-14.0); SEGMENTED NEUTROPHILS % (AUTO) 71.2 % (42-78); TOTAL CELLS COUNTED % (AUTO) 100 %; WHITE BLOOD COUNT 8.3 10^3/uL (4.0-10.5)
[2018-02-15 14:16] LABS: ANISOCYTOSIS 2+; HYPOCHROMASIA 2+; OVALOCYTES 1+; PLATELET COMMENT INCREASED; POIKILOCYTOSIS 2+; POLYCHROMASIA SLIGHT; TARGET CELLS SLIGHT; TEAR DROP CELLS 1+
[2018-02-15 14:24] LABS: ALANINE AMINOTRANSFERASE 26 U/L (9-52); ALBUMIN 4.5 g/dL (3.5-5.0); ALKALINE PHOSPHATASE 88 U/L (38-126); ANION GAP 13 (5-19); ASPARTATE AMINO TRANSFERASE 19 U/L (14-36); BILIRUBIN,DIRECT 0.7 mg/dL (0.0-0.4); BLOOD UREA NITROGEN 14 mg/dL (7-20); CALCIUM 10.2 mg/dL (8.4-10.2); CARBON DIOXIDE 30 mmol/L (22-30); CHLORIDE 101 mmol/L (98-107); GLUCOSE 101 mg/dL (75-110); TOTAL PROTEIN 8.2 g/dL (6.3-8.2)
== END ==
LOC: OD 12:51
PROVIDERS: ATTEND Specialist
DX: R10.31 Right lower quadrant pain (principal)
CPT/HCPCS: 36415; 80053; 85025

== ENCOUNTER 2018-02-16 17:51 | Emergency (ER) | payer BC ==
[2018-02-16 17:59] VITALS: BP 125/73
[2018-02-16] MEDS ORDERED: NORMAL SALINE 1000 ML 1,000 ML IV ONE (18:46)
[2018-02-16] MEDS ORDERED: ONDANSETRON HCL INJ/PF 4 MG/2 ML SDV IV ONE (18:46)
[2018-02-16] MEDS ORDERED: KETOROLAC TROMETHAMINE INJ/PF 30 MG/1 ML SDV IV ONE (18:47)
--- NOTE | 2018-02-16 18:48 | ER Document Report ---
ED Medical Screen (RME) - General Chief Complaint: Abdominal Pain Stated Complaint: ABDOMINAL PAIN, NAUSEA Time Seen by Provider: 02/16/18 18:45 Notes: Patient states that she had a partial hysterectomy on December 29, 2017. She states she subsequently developed an intra-abdominal abscess and had to be admitted to this hospital as well as to an outside hospital. She states she had a drainage tube in her abdomen for a while. She states she finished her antibiotics several weeks ago. She states once again yesterday she began to feel sick. She states she is having abdominal pain malaise weakness nausea and decreased appetite. TRAVEL OUTSIDE OF THE [place] IN LAST 30 DAYS: No - Related Data Allergies/Adverse Reactions: No Known Allergies Allergy (Verified 02/16/18 17:53) Past Medical History - Social History Chew tobacco use (# tins/day): No Frequency of alcohol use: None Drug Abuse: None - Past Medical History Cardiac Medical History: Denies: Hx Coronary Artery Disease, Hx Heart Attack, Hx Hypertension Pulmonary Medical History: Denies: Hx Asthma, Hx Bronchitis, Hx COPD, Hx Pneumonia Neurological Medical History: Reports: Hx Migraine. Denies: Hx Cerebrovascular Accident, Hx Seizures Renal/ Medical History: Reports: Hx Ovarian Cysts - fibroids. Denies: Hx Peritoneal Dialysis Musculoskeltal Medical History: Denies Hx Arthritis, Reports Hx Musculoskeletal Deformity, Reports Hx Musculoskeletal Trauma - right shoulder injury with bursitis and tennis elbow Past Surgical History: Reports: Hx Gynecologic Surgery - uterine fibroids, Hx Hysterectomy, Hx Oral Surgery, Hx Tonsillectomy - Immunizations Immunizations up to date: No Hx Diphtheria, Pertussis, Tetanus Vaccination: Yes History of Influenza Vaccine for 08/2017 - 01/2018 Season: Refused Physical Exam - Vital signs Vitals: Temp Pulse Resp BP Pulse Ox 99.2 F 94 16 125/73 99 02/16/18 17:58 02/16/18 17:58 02/16/18 17:58 02/16/18 17:58 02/16/18 17:58 Course - Vital Signs Vital signs: Temp Pulse Resp BP Pulse Ox 99.2 F 94 16 125/73 99 02/16/18 17:58 02/16/18 17:58 02/16/18 17:58 02/16/18 17:58 02/16/18 17:58
== END 2018-02-16 19:21 | disposition left against medical advice (07) ==
LOC: ER 17:51
DX: R10.9 Unspecified abdominal pain (principal); R53.81 Other malaise; R11.0 Nausea; R63.0 Anorexia; R53.1 Weakness; Z90.711 Acquired absence of uterus with remaining cervical stump; Z86.19 Personal history of other infectious and parasitic diseases; Z87.42 Personal history of other diseases of the female genital tract; Z53.20 Procedure and treatment not carried out because of patient's decision for unspecified reasons
CPT/HCPCS: 36415; 99281

== ENCOUNTER → 2018-02-23 | Outpatient (CLI) | payer BC ==
[2018-02-23 13:34] LABS: ABSOLUTE BASOPHILS # (AUTO) 0.1 10^3/uL (0.0-0.2); ABSOLUTE EOSINOPHILS # (AUTO) 0.1 10^3/uL (0.0-0.6); ABSOLUTE LYMPHOCYTES (AUTO) 1.7 10^3/uL (0.5-4.7); ABSOLUTE MONOCYTES (AUTO) 0.5 10^3/uL (0.1-1.4); ABSOLUTE NEUT (AUTO) 4.8 10^3/uL (1.7-8.2); BASOPHILS % (AUTO) 1.3 % (0-2); EOSINOPHILS % (AUTO) 1.5 % (0-6); HEMATOCRIT 33.7 % (36.0-47.0); HEMOGLOBIN 10.7 g/dL (12.0-15.5); LYMPHOCYTES % (AUTO) 23.5 % (13-45); MEAN CORPUSCULAR HEMOGLOBIN 20.3 pg (27.0-33.4); MEAN CORPUSCULAR HGB CONC 31.8 g/dL (32.0-36.0); MEAN CORPUSCULAR VOLUME 64 fl (80-97); MONOCYTES % (AUTO) 6.5 % (3-13); PLATELET COUNT 452 10^3/uL (150-450); RED BLOOD COUNT 5.28 10^6/uL (3.72-5.28); RED CELL DISTRIBUTION WIDTH 17.4 % (11.5-14.0); SEGMENTED NEUTROPHILS % (AUTO) 67.2 % (42-78); TOTAL CELLS COUNTED % (AUTO) 100 %; WHITE BLOOD COUNT 7.2 10^3/uL (4.0-10.5)
[2018-02-23 13:55] LABS: ALANINE AMINOTRANSFERASE 27 U/L (9-52); ALBUMIN 4.4 g/dL (3.5-5.0); ALKALINE PHOSPHATASE 78 U/L (38-126); ASPARTATE AMINO TRANSFERASE 18 U/L (14-36); BILIRUBIN,DIRECT 0.5 mg/dL (0.0-0.4); BILIRUBIN,TOTAL 0.8 mg/dL (0.2-1.3); TOTAL PROTEIN 7.4 g/dL (6.3-8.2)
[2018-02-23 14:02] LABS: ANISOCYTOSIS 2+; HYPOCHROMASIA SLIGHT; OVALOCYTES 1+; PLATELET COMMENT ADEQUATE; POIKILOCYTOSIS 1+; POLYCHROMASIA SLIGHT
[2018-02-24 10:38] LABS: HEPATITIS C VIRUS AB 0.1 s/co ratio (0.0-0.9)
[2018-02-24 10:48] LABS: HEPATITS B SURFACE ANTIGEN Negative (Negative)
== END ==
LOC: OD 12:51
PROVIDERS: ATTEND Specialist
DX: R11.2 Nausea with vomiting, unspecified (principal)
CPT/HCPCS: 36415; 80076; 85025; 86803; 86804; 87340

== ENCOUNTER 2018-03-26 10:29 | Emergency (ER) | payer BC ==
[2018-03-26] MEDS ORDERED: ASPIRIN 81 MG TABLET, CHEWABLE PO ONE (10:50)
[2018-03-26] MEDS ORDERED: ACETAMINOPHEN 325 MG TABLET PO ONE (10:50)
--- NOTE | 2018-03-26 10:53 | ER Document Report ---
ED Medical Screen (RME) - General Chief Complaint: Fever Stated Complaint: FLU LIKE SYMPTOMS Time Seen by Provider: 03/26/18 10:46 Notes: 42-year-old female presents emergency department complaining of nausea vomiting diarrhea starting associated with chest pain, shortness of breath, fevers and productive cough starting yesterday. Cough is productive of brown sputum, denies any blood. States that she feels like her is about to beat out of her chest and that she is quite short of breath. Patient states she has been in and out of the hospital since December when she had a partial hysterectomy. Patient did have an infection in her abdomen after the surgery but states she has no abdominal pain at this time so she does not think that is what is causing her fever at this time. Mother has had multiple heart attacks, unknown with the first age of heart attack was. TRAVEL OUTSIDE OF THE [place] IN LAST 30 DAYS: No - Related Data Allergies/Adverse Reactions: No Known Allergies Allergy (Verified 03/26/18 10:46) Past Medical History - General Information source: Patient - Social History Cigarette use (# per day): Yes - Former, quit in December. Chew tobacco use (# tins/day): No Frequency of alcohol use: None Drug Abuse: None Family history: CAD - Past Medical History Cardiac Medical History: Denies: Hx Coronary Artery Disease, Hx Heart Attack, Hx Hypertension Pulmonary Medical History: Denies: Hx Asthma, Hx Bronchitis, Hx COPD, Hx Pneumonia Neurological Medical History: Reports: Hx Migraine. Denies: Hx Cerebrovascular Accident, Hx Seizures Renal/ Medical History: Reports: Hx Ovarian Cysts - fibroids. Denies: Hx Peritoneal Dialysis Musculoskeltal Medical History: Denies Hx Arthritis, Reports Hx Musculoskeletal Deformity, Reports Hx Musculoskeletal Trauma - right shoulder injury with bursitis and tennis elbow Past Surgical History: Reports: Hx Gynecologic Surgery - uterine fibroids, Hx Hysterectomy, Hx Oral Surgery, Hx Tonsillectomy - Immunizations Immunizations up to date: No Hx Diphtheria, Pertussis, Tetanus Vaccination: Yes History of Influenza Vaccine for 08/2017 - 01/2018 Season: Refused Review of Systems - Review of Systems Constitutional: See HPI, Chills, Diaphoresis, Fever, Malaise, Weakness EENT: No symptoms reported Cardiovascular: See HPI Respiratory: See HPI Gastrointestinal: See HPI Physical Exam - Vital signs Vitals: Temp Pulse Resp BP Pulse Ox 102.5 F H 116 H 20 152/64 H 94 03/26/18 10:32 03/26/18 10:32 03/26/18 10:32 03/26/18 10:32 03/26/18 10:32 Interpretation: Hypertensive, Tachypneic, Febrile - General General appearance: Appears well In distress: Mild - Appears uncomfortable, coughing anytime ask her to take a deep breath. - HEENT Head: Normocephalic, Atraumatic - Respiratory Respiratory status: No: Respiratory distress, Pursed lip breathing, Tachypnea Chest status: Nontender Breath sounds: Nonproductive cough. No: Wheezing Chest palpation: Normal - Cardiovascular Rhythm: Tachycardia Heart sounds: Normal auscultation Murmur: No - Skin Skin Temperature: Warm Skin Moisture: Dry Skin Color: Normal Course - Vital Signs Vital signs: Temp Pulse Resp BP Pulse Ox 102.5 F H 116 H 20 152/64 H 94 03/26/18 10:32 03/26/18 10:32 03/26/18 10:32 03/26/18 10:32 03/26/18 10:32
--- NOTE | 2018-03-26 11:16 | ER Document Report ---
ED General - General Chief Complaint: Fever Stated Complaint: FLU LIKE SYMPTOMS Time Seen by Provider: 03/26/18 10:46 Mode of Arrival: Ambulatory Information source: Patient Notes: This is a 42-year-old female presenting to the emergency room with fever, cough , congestion and shortness of breath. Patient states her symptoms started 2 days ago. She does have a history of a hysterectomy in December complicated by a postoperative abscess requiring hospitalization with tube drainage. TRAVEL OUTSIDE OF THE [place] IN LAST 30 DAYS: No - HPI Onset: Yesterday Onset/Duration: Gradual Quality of pain: Dull Severity: Mild Pain Level: 1 Associated symptoms: Chills, Fever, Shortness of breath Exacerbated by: Denies Relieved by: Denies Similar symptoms previously: No Recently seen / treated by doctor: Yes - Related Data Allergies/Adverse Reactions: No Known Allergies Allergy (Verified 03/26/18 10:46) Past Medical History - General Information source: Patient - Social History Smoking Status: Former Smoker Cigarette use (# per day): Yes - Former, quit in December. Chew tobacco use (# tins/day): No Frequency of alcohol use: None Drug Abuse: None Lives with: Family Family History: Arthritis, CAD, DM, Hyperlipidemia, Hypertension Patient has suicidal ideation: No Patient has homicidal ideation: No - Past Medical History Cardiac Medical History: Denies: Hx Coronary Artery Disease, Hx Heart Attack, Hx Hypertension Pulmonary Medical History: Denies: Hx Asthma, Hx Bronchitis, Hx COPD, Hx Pneumonia Neurological Medical History: Reports: Hx Migraine. Denies: Hx Cerebrovascular Accident, Hx Seizures Renal/ Medical History: Reports: Hx Ovarian Cysts - fibroids. Denies: Hx Peritoneal Dialysis Musculoskeltal Medical History: Denies Hx Arthritis, Reports Hx Musculoskeletal Deformity, Reports Hx Musculoskeletal Trauma - right shoulder injury with bursitis and tennis elbow Past Surgical History: Reports: Hx Gynecologic Surgery - uterine fibroids, Hx Hysterectomy, Hx Oral Surgery, Hx Tonsillectomy - Immunizations Immunizations up to date: No Hx Diphtheria, Pertussis, Tetanus Vaccination: Yes Review of Systems - Review of Systems Constitutional: Chills, Fever EENT: No symptoms reported Cardiovascular: No symptoms reported Respiratory: See HPI Gastrointestinal: No symptoms reported Genitourinary: No symptoms reported Female Genitourinary: No symptoms reported Musculoskeletal: No symptoms reported Skin: No symptoms reported Hematologic/Lymphatic: No symptoms reported Neurological/Psychological: No symptoms reported Physical Exam - Vital signs Vitals: Temp Pulse Resp BP Pulse Ox 102.5 F H 116 H 20 152/64 H 94 03/26/18 10:32 03/26/18 10:32 03/26/18 10:32 03/26/18 10:32 03/26/18 10:32 Notes: Physical exam: GENERAL: 42-year-old female, alert and oriented 3, no acute distress HEAD: Atraumatic, normocephalic. EYES: Pupils equal round and reactive to light, extraocular movements intact, sclera anicteric, conjunctiva are normal. ENT: TMs normal, nares patent, oropharynx clear without exudates. Moist mucous membranes. NECK: Normal range of motion, supple without obvious mass or JVD. LUNGS: Breath sounds clear to auscultation bilaterally and equal. No wheezes rales or rhonchi. HEART: Regular rate and rhythm without murmurs, rubs or gallops. ABDOMEN: Soft, normoactive bowel sounds. No tenderness to palpation. No guarding, no rebound. No masses appreciated. EXTREMITIES: Normal range of motion, no pitting or edema. No clubbing or cyanosis. NEUROLOGICAL: Cranial nerves II through XII grossly intact. Normal speech, moving all extremities. PSYCH: Normal mood, normal affect. SKIN: Warm, Dry, normal turgor, no rashes or lesions noted. Course - Re-evaluation Re-evalutation: 03/26/18 15:23 Note: The patient presented with fever, cough and shortness of breath. Chest x- ray was suspicious for early pneumonia and this was confirmed by CT scan. CTA showed no evidence of blood clots. Patient's oxygenation has been quite good ( 98% on room air). Her white count labs are normal. 03/26/18 15:32 - Vital Signs Vital signs: Temp Pulse Resp BP Pulse Ox 98.5 F 116 H 22 H 115/59 L 98 03/26/18 15:32 03/26/18 10:32 03/26/18 15:32 03/26/18 15:32 03/26/18 15:32 - Laboratory Result Diagrams: 03/26/18 11:15 03/26/18 11:15 Laboratory results interpreted by me: 03/26/18 03/26/18 11:15 11:15 Hgb 10.4 L Hct 33.2 L MCV 63 L MCH 19.8 L MCHC 31.3 L RDW 18.1 H Seg Neutrophils % 78.5 H Lymphocytes % 12.9 L Glucose 112 H Total Bilirubin 1.5 H Direct Bilirubin 0.5 H Creatine Kinase 23 L - Diagnostic Test Radiology reviewed: Image reviewed, Reports reviewed - EKG Interpretation by Me Rate: Normal Rhythm: NSR - EKG shows normal sinus rhythm with a ventricular rate of 100, no acute ST-T wave changes Discharge - Discharge Clinical Impression: Pneumonia Condition: Stable Disposition: HOME, SELF-CARE Instructions: Pneumonia ([facility]) Additional Instructions: As we discussed, your labs look quite good. CT of the chest shows a pneumonia. You were started on antibiotics in the emergency room. Rest, drink plenty of fluids, take antibiotics as prescribed. It is important that you follow-up with a primary care doctor. I have left the number for several below. Recommendations: It is recommended to followup with a primary care doctor within the next few days. If you do not have a primary care doctor or you are unable to get an apointment during that time, I left the number for some internal medicine physicians that are affiliated with this [facility]. Dr. Alta Vogt [address], [place] [address] [phone] Dr Darby Address: [address] [place] [address] [place] [address] Dr Kirk Address: [address] [place] [address] [place] [address] Prescriptions: Levofloxacin 500 mg PO DAILY #9 tablet Forms: Return to Work
[2018-03-26 11:51] LABS: ALANINE AMINOTRANSFERASE 34 U/L (9-52); ALBUMIN 4.1 g/dL (3.5-5.0); ALKALINE PHOSPHATASE 72 U/L (38-126); ANION GAP 14 (5-19); ASPARTATE AMINO TRANSFERASE 29 U/L (14-36); BILIRUBIN,DIRECT 0.5 mg/dL (0.0-0.4); BILIRUBIN,TOTAL 1.5 mg/dL (0.2-1.3); BLOOD UREA NITROGEN 9 mg/dL (7-20); CALCIUM 9.5 mg/dL (8.4-10.2); CARBON DIOXIDE 27 mmol/L (22-30); CHLORIDE 101 mmol/L (98-107); CREATINE KINASE 23 U/L (30-135); GLUCOSE 112 mg/dL (75-110); POTASSIUM 3.9 mmol/L (3.6-5.0); SODIUM 141.7 mmol/L (137-145); TOTAL PROTEIN 7.1 g/dL (6.3-8.2)
--- NOTE | 2018-03-26 11:57 | RADIOLOGY REPORT (SQ) ---
EXAM DESCRIPTION: CHEST SINGLE VIEW COMPLETED DATE/TIME: 03/26/2018 11:49 am REASON FOR STUDY: cough, chest pain, fever COMPARISON: 01/16/2018. EXAM PARAMETERS: NUMBER OF VIEWS: One view. TECHNIQUE: Single frontal radiographic view of the chest acquired. RADIATION DOSE: NA LIMITATIONS: None. FINDINGS: LUNGS AND PLEURA: No opacities, masses or pneumothorax. No pleural effusion. MEDIASTINUM AND HILAR STRUCTURES: No masses. Contour normal. HEART AND VASCULAR STRUCTURES: Heart normal in size. Normal vasculature. BONES: No acute findings. HARDWARE: None in the chest. OTHER: No other significant finding. IMPRESSION: NO ACUTE RADIOGRAPHIC FINDING IN THE CHEST. TECHNICAL DOCUMENTATION: JOB ID: [id number] [employer]- All Rights Reserved Reading location - IP/workstation name: [email or web address]
[2018-03-26 12:01] LABS: ABSOLUTE LYMPHOCYTES (AUTO) 0.9 10^3/uL (0.5-4.7); ABSOLUTE MONOCYTES (AUTO) 0.5 10^3/uL (0.1-1.4); ABSOLUTE NEUT (AUTO) 5.7 10^3/uL (1.7-8.2); BASOPHILS % (AUTO) 0.7 % (0-2); CREATINE KINASE MB < 0.22 ng/mL (<4.55); EOSINOPHILS % (AUTO) 0.4 % (0-6); HEMATOCRIT 33.2 % (36.0-47.0); HEMOGLOBIN 10.4 g/dL (12.0-15.5); LYMPHOCYTES % (AUTO) 12.9 % (13-45); MEAN CORPUSCULAR HEMOGLOBIN 19.8 pg (27.0-33.4); MEAN CORPUSCULAR HGB CONC 31.3 g/dL (32.0-36.0); MEAN CORPUSCULAR VOLUME 63 fl (80-97); MONOCYTES % (AUTO) 7.5 % (3-13); PLATELET COUNT 287 10^3/uL (150-450); RED BLOOD COUNT 5.24 10^6/uL (3.72-5.28); RED CELL DISTRIBUTION WIDTH 18.1 % (11.5-14.0); SEGMENTED NEUTROPHILS % (AUTO) 78.5 % (42-78); TOTAL CELLS COUNTED % (AUTO) 100 %; TROPONIN I < 0.012 ng/mL; WHITE BLOOD COUNT 7.3 10^3/uL (4.0-10.5)
[2018-03-26 12:16] LABS: ANISOCYTOSIS 2+; HYPOCHROMASIA 2+; OVALOCYTES 1+; PLATELET COMMENT ADEQUATE; POIKILOCYTOSIS 1+; POLYCHROMASIA SLIGHT
--- NOTE | 2018-03-26 13:25 | RADIOLOGY REPORT (SQ) ---
EXAM DESCRIPTION: CTA CHEST COMPLETED DATE/TIME: 03/26/2018 1:14 pm REASON FOR STUDY: fever, chest pain, sob COMPARISON: None. TECHNIQUE: CT scan of the chest performed using helical scanning technique with dynamic intravenous contrast injection. Images reviewed with lung, soft tissue and bone windows. Reconstructed coronal and sagittal MPR images reviewed. Additional 3 dimensional post-processing performed to develop Maximal Intensity Projection images (IA P). All images stored on PACS. All CT scanners at this facility use dose modulation, iterative reconstruction, and/or weight based d osing when appropriate to reduce radiation dose to as low as reasonably achievable (ALARA). [facility]: Dose Right [facility]: CareDose [facility]: Dose Right [facility]: Teradose 4D [facility]: [place] and Tinder CONTRAST TYPE AND DOSE: contrast/concentration: Isovue 370.00 mg/ml; Total Contrast Delivered: 67.0 ml; Total Saline Delivered: 107.0 ml Contrast bolus adequate for pulmonary arteries and aorta. RENAL FUNCTION: BUN 9 creatinine 0.84. RADIATION DOSE: CT Rad equipment meets quality standard of care and radiation dose reduction techniq ues were employed. CTDIvol: 14.3 - 16.5 mGy. DLP: 521 mGy-cm. . LIMITATIONS: None. FINDINGS: LUNGS AND PLEURA: Patchy airspace disease in the right and left lower lobes. A few small faint ground-glass opacities in the left upper lobe. No pleural effusion. AORTA AND GREAT VESSELS: No aneurysm. No dissection. HEART: No pericardial effusion. No significant coronary artery calcifications. PULMONARY ARTERIES: No emboli visualized in the main pulmonary arteries or the segmental branches. HILAR AND MEDIASTINAL STRUCTURES: No identified masses or abnormal nodes. HARDWARE: None in the chest. UPPER ABDOMEN: No significant findings. Limited exam. THYROID AND OTHER SOFT TISSUES: No masses. No adenopathy. BONES: No acute or significant finding. 3D MIPS: Confirm above findings. OTHER: No other significant finding. IMPRESSION: 1. NORMAL CTA OF THE CHEST. NO PULMONARY EMBOLI. 2. SCATTERED AIRSPACE DISEASE CONCERNING FOR PNEUMONIA. COMMENT: Quality ID # [id number]: Final reports with documentation of one or more dose reduction techniques (e.g., Automated exposure control, adjustment of the mA and/or kV according to patient size, use of iterative reconstruction technique) TECHNICAL DOCUMENTATION: JOB ID: [id number]- All Rights Reserved Reading location - IP/workstation name: [email or web address]
[2018-03-26] MEDS ORDERED: LEVOFLOXACIN 750 MG/D5W RTU 750 MG/150 ML RTUPB IV ONE (13:42)
[2018-03-26 15:36] VITALS: BP 115/59
--- NOTE | 2018-03-26 21:00 | EKG REPORT ---
SEVERITY:- OTHERWISE NORMAL ECG - SINUS TACHYCARDIA : Confirmed by: Luis Marte 26-Mar-2018 17:59:41
== END 2018-03-26 15:44 | disposition home or self-care (01) ==
LOC: ER 10:29
DX: J18.9 Pneumonia, unspecified organism (principal); R50.9 Fever, unspecified; R05 Cough; R06.02 Shortness of breath; Z87.891 Personal history of nicotine dependence; Z98.890 Other specified postprocedural states; Z90.710 Acquired absence of both cervix and uterus
CPT/HCPCS: 93005; 99284; 96365; 36415; 87040; 82553; 82550; 85025; 80053; 84484; 83605; 71045; 71275; 93010; J1956

== ENCOUNTER 2018-06-27 16:53 | Emergency (ER) | payer BC ==
[2018-06-27] MEDS ORDERED: NORMAL SALINE 1000 ML 1,000 ML IV ONE (18:30)
--- NOTE | 2018-06-27 18:30 | ER Document Report ---
ED Medical Screen (RME) - General Chief Complaint: Abdominal Swelling Stated Complaint: ABDOMINAL PAIN Time Seen by Provider: 06/27/18 18:27 Mode of Arrival: Ambulatory Information source: Patient Notes: This is a 43-year-old female with a history of a partial hysterectomy in December 2017 with subsequent postoperative intra-abdominal abscess and ileus requiring pigtail catheter and prolonged hospitalization. Patient has been doing well until recently when she started developing right lower abdominal pain. Patient states over the last few days it has been getting worse. She denies fever. She does report nausea but no vomiting. She denies any vaginal discharge. She denies any blood in the stool. TRAVEL OUTSIDE OF THE [place] IN LAST 30 DAYS: No - Related Data Allergies/Adverse Reactions: No Known Allergies Allergy (Verified 06/27/18 18:27) Past Medical History - Social History Chew tobacco use (# tins/day): No Frequency of alcohol use: None Drug Abuse: None Family history: CAD - Past Medical History Cardiac Medical History: Denies: Hx Coronary Artery Disease, Hx Heart Attack, Hx Hypertension Pulmonary Medical History: Denies: Hx Asthma, Hx Bronchitis, Hx COPD, Hx Pneumonia Neurological Medical History: Reports: Hx Migraine. Denies: Hx Cerebrovascular Accident, Hx Seizures Renal/ Medical History: Reports: Hx Ovarian Cysts - fibroids. Denies: Hx Peritoneal Dialysis GI Medical History: Reports: Hx Gastroesophageal Reflux Disease Musculoskeltal Medical History: Denies Hx Arthritis, Reports Hx Musculoskeletal Deformity, Reports Hx Musculoskeletal Trauma - right shoulder injury with bursitis and tennis elbow Past Surgical History: Reports: Hx Gynecologic Surgery - uterine fibroids, Hx Hysterectomy, Hx Oral Surgery, Hx Tonsillectomy - Immunizations Immunizations up to date: No Hx Diphtheria, Pertussis, Tetanus Vaccination: Yes History of Influenza Vaccine for 08/2017 - 01/2018 Season: Refused Physical Exam - Vital signs Vitals: Temp Pulse Resp BP Pulse Ox 98.1 F 73 18 136/83 H 100 06/27/18 16:58 06/27/18 16:58 06/27/18 16:58 06/27/18 16:58 06/27/18 16:58 Course - Vital Signs Vital signs: Temp Pulse Resp BP Pulse Ox 98.1 F 73 18 136/83 H 100 06/27/18 16:58 06/27/18 16:58 06/27/18 16:58 06/27/18 16:58 06/27/18 16:58
[2018-06-27] MEDS ORDERED: ONDANSETRON HCL INJ/PF 4 MG/2 ML SDV IV ONE (18:31)
[2018-06-27 19:07] LABS: ABSOLUTE BASOPHILS # (AUTO) 0.1 10^3/uL (0.0-0.2); ABSOLUTE EOSINOPHILS # (AUTO) 0.2 10^3/uL (0.0-0.6); ABSOLUTE LYMPHOCYTES (AUTO) 2.6 10^3/uL (0.5-4.7); ABSOLUTE MONOCYTES (AUTO) 0.7 10^3/uL (0.1-1.4); ABSOLUTE NEUT (AUTO) 7.9 10^3/uL (1.7-8.2); EOSINOPHILS % (AUTO) 1.8 % (0-6); HEMATOCRIT 38.4 % (36.0-47.0); HEMOGLOBIN 12.3 g/dL (12.0-15.5); LYMPHOCYTES % (AUTO) 22.3 % (13-45); MEAN CORPUSCULAR HEMOGLOBIN 20.3 pg (27.0-33.4); MEAN CORPUSCULAR HGB CONC 32.1 g/dL (32.0-36.0); MEAN CORPUSCULAR VOLUME 63 fl (80-97); MONOCYTES % (AUTO) 6.4 % (3-13); PLATELET COUNT 325 10^3/uL (150-450); RED BLOOD COUNT 6.07 10^6/uL (3.72-5.28); RED CELL DISTRIBUTION WIDTH 15.5 % (11.5-14.0); SEGMENTED NEUTROPHILS % (AUTO) 68.5 % (42-78); TOTAL CELLS COUNTED % (AUTO) 100 %; WHITE BLOOD COUNT 11.5 10^3/uL (4.0-10.5)
[2018-06-27 19:16] LABS: APPEARANCE,URINE CLEAR; BILIRUBIN,URINE NEGATIVE (NEGATIVE); COLOR,URINE YELLOW; GLUCOSE, URINE NEGATIVE (NEGATIVE); KETONES,URINE NEGATIVE (NEGATIVE); LEUKOCYTE ESTERASE,URINE NEGATIVE (NEGATIVE); NITRITE,URINE NEGATIVE (NEGATIVE); PROTEIN,URINE NEGATIVE (NEGATIVE); URINE SPECIFIC GRAVITY 1.013; UROBILINOGEN,URINE NEGATIVE mg/dL (<2.0)
[2018-06-27 19:17] LABS: ALANINE AMINOTRANSFERASE 32 U/L (9-52); ALBUMIN 4.7 g/dL (3.5-5.0); ALKALINE PHOSPHATASE 69 U/L (38-126); ANION GAP 15 (5-19); ASPARTATE AMINO TRANSFERASE 27 U/L (14-36); BILIRUBIN,DIRECT 0.3 mg/dL (0.0-0.4); BLOOD UREA NITROGEN 16 mg/dL (7-20); CALCIUM 9.9 mg/dL (8.4-10.2); CARBON DIOXIDE 26 mmol/L (22-30); CHLORIDE 101 mmol/L (98-107); GLUCOSE 88 mg/dL (75-110); LIPASE 60.5 U/L (23-300); SODIUM 142.4 mmol/L (137-145); TOTAL PROTEIN 7.4 g/dL (6.3-8.2)
[2018-06-27 19:37] LABS: HYPOCHROMASIA 2+; POLYCHROMASIA 1+
[2018-06-27 19:38] LABS: ANISOCYTOSIS SLIGHT; OVALOCYTES 1+; PLATELET COMMENT ADEQUATE; POIKILOCYTOSIS 1+
--- NOTE | 2018-06-27 20:38 | RADIOLOGY REPORT (SQ) ---
EXAM DESCRIPTION: CT ABD/PELVIS WITH IV ONLY COMPLETED DATE/TIME: 06/27/2018 8:27 pm REASON FOR STUDY: abd pain COMPARISON: 01/11/2018 TECHNIQUE: CT scan of the abdomen and pelvis performed using helical scanning technique with dynamic intravenous contrast injection. No oral contrast. Images reviewed with lung, soft tissue, and bone windows. Reconstructed coronal and sagittal MPR images reviewed. Delayed images for evaluation of the urinary system also acquired. All images stored on PACS. All CT scanners at this facility use dose modulation, iterative reconstruction, and/or weight based d osing when appropriate to reduce radiation dose to as low as reasonably achievable (ALARA). [facility]: Dose Right [facility]: CareDose [facility]: Dose Right [facility]: Teradose 4D [facility]: [employer] CONTRAST TYPE AND DOSE: contrast/concentration: Isovue 350.00 mg/ml; Total Contrast Delivered: 88.0 ml; Total Saline Delivered: 49.0 ml RENAL FUNCTION: None required. The patient is less than 50 years old. RADIATION DOSE: CT Rad equipment meets quality standard of care and radiation dose reduction techniq ues were employed. CTDIvol: 10.6 - 14.8 mGy. DLP: 1378 mGy-cm.. LIMITATIONS: None. FINDINGS: LOWER CHEST: No significant findings. No nodules or infiltrates. LIVER: Normal size. No masses. No dilated ducts. SPLEEN: Normal size. No focal lesions. PANCREAS: No masses. No significant calcifications. No adjacent inflammation or peripancreatic fluid collections. Pancreatic duct not dilated. GALLBLADDER: No identified stones by CT criteria. No inflammatory changes to suggest cholecystitis. ADRENAL GLANDS: No significant masses or asymmetry. RIGHT KIDNEY AND URETER: No solid masses. No significant calcifications. No hydronephrosis or hyd roureter. LEFT KIDNEY AND URETER: No solid masses. No significant calcifications. No hydronephrosis or hydr oureter. AORTA AND VESSELS: No aneurysm. No dissection. Renal arteries, SMA, celiac without stenosis. RETROPERITONEUM: No retroperitoneal adenopathy, hemorrhage or masses. BOWEL AND PERITONEAL CAVITY: No masses or inflammatory changes. No free fluid or peritoneal masses. APPENDIX: Normal. PELVIS: Multiple physiologic cysts bilateral. Largest 2 cm right ovary. ABDOMINAL WALL: No masses. No hernias. BONES: Spondylolysis and spondylolisthesis L5. Degenerative disc L5-S1. OTHER: No other significant finding. IMPRESSION: Physiologic cysts in both ovaries. Otherwise normal study. TECHNICAL DOCUMENTATION: JOB ID: [id number] Quality ID # [id number]: Final reports with documentation of one or more dose reduction techniques (e.g., Au tomated exposure control, adjustment of the mA and/or kV according to patient size, use of iterative reconstruction technique) 2010 [employer]- All Rights Reserved Reading location - IP/workstation name: [email or web address]
--- NOTE | 2018-06-27 21:11 | ER Document Report ---
ED General - General Chief Complaint: Abdominal Swelling Stated Complaint: ABDOMINAL PAIN Time Seen by Provider: 06/27/18 18:27 Mode of Arrival: Ambulatory Notes: Patient is a 43-year-old female with a past medical history of a complicated postoperative course from hysterectomy in December 2017 including intra- abdominal abscesses who presents with 2 weeks of intermittent generalized abdominal discomfort as well as abdominal swelling. The patient describes the pain as a cramping, intermittent, generalized abdominal type discomfort most localized to her lower abdomen. Nothing improves or worsens this discomfort. She denies a history of similar symptoms in the past. She has not contacted her general doctor SKIP PIT WORKER regarding today's concerns. She denies any fever, vomiting, diarrhea, vaginal bleeding, vaginal discharge or constitutional symptoms. TRAVEL OUTSIDE OF THE [place] IN LAST 30 DAYS: No - Related Data Allergies/Adverse Reactions: No Known Allergies Allergy (Verified 06/27/18 18:27) Past Medical History - General Information source: Patient - Social History Smoking Status: Former Smoker Chew tobacco use (# tins/day): No Frequency of alcohol use: None Drug Abuse: None Lives with: Spouse/Significant other Family History: Arthritis, CAD, DM, Hyperlipidemia, Hypertension Patient has suicidal ideation: No Patient has homicidal ideation: No - Past Medical History Cardiac Medical History: Denies: Hx Coronary Artery Disease, Hx Heart Attack, Hx Hypertension Pulmonary Medical History: Denies: Hx Asthma, Hx Bronchitis, Hx COPD, Hx Pneumonia Neurological Medical History: Reports: Hx Migraine. Denies: Hx Cerebrovascular Accident, Hx Seizures Renal/ Medical History: Reports: Hx Ovarian Cysts - fibroids. Denies: Hx Peritoneal Dialysis GI Medical History: Reports: Hx Gastroesophageal Reflux Disease Musculoskeletal Medical History: Denies Hx Arthritis, Reports Hx Musculoskeletal Deformity, Reports Hx Musculoskeletal Trauma - right shoulder injury with bursitis and tennis elbow Past Surgical History: Reports: Hx Gynecologic Surgery - uterine fibroids, Hx Hysterectomy, Hx Oral Surgery, Hx Tonsillectomy - Immunizations Immunizations up to date: No Hx Diphtheria, Pertussis, Tetanus Vaccination: Yes Review of Systems - Review of Systems Notes: Constitutional: Negative for fever. HENT: Negative for sore throat. Eyes: Negative for visual changes. Cardiovascular: Negative for chest pain. Respiratory: Negative for shortness of breath. Gastrointestinal: Positive for abdominal pain and subjective abdominal swelling Genitourinary: Negative for dysuria. Musculoskeletal: Negative for back pain. Skin: Negative for rash. Neurological: Negative for headaches, weakness or numbness. 10 point ROS negative except as marked above and in HPI. Physical Exam - Vital signs Vitals: Temp Pulse Resp BP Pulse Ox 98.1 F 73 18 136/83 H 100 06/27/18 16:58 06/27/18 16:58 06/27/18 16:58 06/27/18 16:58 06/27/18 16:58 Interpretation: Normal Notes: PHYSICAL EXAMINATION: GENERAL: Well-appearing, well-nourished and in no acute distress. HEAD: Atraumatic, normocephalic. EYES: Pupils equal round and reactive to light, extraocular movements intact, sclera anicteric, conjunctiva are normal. ENT: nares patent, oropharynx clear without exudates. Moist mucous membranes. NECK: Normal range of motion, supple without lymphadenopathy LUNGS: Breath sounds clear to auscultation bilaterally and equal. No wheezes rales or rhonchi. HEART: Regular rate and rhythm without murmurs ABDOMEN: Soft, nontender, normoactive bowel sounds. No guarding, no rebound. No masses appreciated. EXTREMITIES: Normal range of motion, no pitting or edema. No cyanosis. NEUROLOGICAL: No focal neurological deficits. Moves all extremities spontaneously and on command. PSYCH: Normal mood, normal affect. SKIN: Warm, Dry, normal turgor, no rashes or lesions noted. Course - Re-evaluation Re-evalutation: 06/27/18 21:08 Patient presents with 2-3 weeks of complaints of abdominal swelling and intermittent stabbing lower abdominal pain. On exam she is well in appearance, vitals within normal limits, no distress. Abdominal exam is notable for pain over palpation of the right and left adnexa but otherwise the abdominal exam is completely benign without any areas of focal rebound guarding or rigidity. The patient does state that she has abdominal swelling although it appears that she does have some excess adipose tissue of her abdomen I do not appreciate any evidence of edema to the abdominal wall. Labs completely unremarkable. CT the abdomen pelvis does show bilateral physiologic cysts which could cause some degree of bloating and swelling to the lower abdomen as well as some mild discomfort. I have notified her of this finding and of encouraged her to follow -up with SKIP PIT WORKER regarding this issue. I do not however see any other alternative acute life-threatening issue or evidence of intra-abdominal pathology based on exam, labs, imaging and history today. At this time will discharge with return precautions and follow-up recommendations. Verbal discharge instructions given a the bedside and opportunity for questions given. Medication warnings reviewed. Patient is in agreement with this plan and has verbalized understanding of return precautions and the need for primary care follow-up in the next 24-72 hours. - Vital Signs Vital signs: Temp Pulse Resp BP Pulse Ox 98.6 F 88 18 137/58 H 98 06/27/18 21:38 06/27/18 21:38 06/27/18 21:38 06/27/18 21:38 06/27/18 21:38 - Laboratory Result Diagrams: 06/27/18 18:45 06/27/18 18:45 Laboratory results interpreted by me: 06/27/18 18:45 WBC 11.5 H RBC 6.07 H MCV 63 L MCH 20.3 L RDW 15.5 H - Diagnostic Test Radiology reviewed: Reports reviewed Discharge - Discharge Clinical Impression: Lower abdominal pain Ovarian cyst Qualifiers: Laterality: bilateral Qualified Code(s): N83.201 - Unspecified ovarian cyst, right side Condition: Good Disposition: HOME, SELF-CARE Additional Instructions: You have been seen in the Emergency Department (ED) for abdominal pain and abdominal swelling. Your evaluation did not identify a clear cause of your symptoms but was generally reassuring. You do however have bilateral ovarian cyst which could contribute to a sensation of fullness and discomfort in your lower abdomen that you are experiencing. Please follow-up with your SKIP PIT WORKER regarding the cysts in your lower abdominal discomfort. For your pain: Take ibuprofen 600 mg and acetaminophen 1000 mg every 6 hours together as needed for pain. Return to the ED if your abdominal pain worsens or fails to improve, you develop bloody vomiting, bloody diarrhea, you are unable to tolerate fluids due to vomiting, fever greater than 101, or other symptoms that concern you. Referrals: RAPHAEL LYNN PA [Primary Care Provider] - Follow up as needed
[2018-06-27 21:38] VITALS: BP 137/58
== END 2018-06-27 21:38 | disposition home or self-care (01) ==
LOC: ER 16:53
DX: N83.202 Unspecified ovarian cyst, left side (principal); N83.201 Unspecified ovarian cyst, right side; R10.30 Lower abdominal pain, unspecified; Z90.710 Acquired absence of both cervix and uterus; Z87.891 Personal history of nicotine dependence; Z87.42 Personal history of other diseases of the female genital tract
CPT/HCPCS: 99284; 96361; 96374; 36415; 83690; 85025; 80053; 81001; 74177; J2405; J7030

== ENCOUNTER 2019-04-26 13:12 | Emergency (ER) | payer BC ==
--- NOTE | 2019-04-26 14:31 | ER Document Report ---
ED Medical Screen (RME) - General Chief Complaint: Leg Swelling Stated Complaint: BACK PAIN,DIFFICULTY URINATING Time Seen by Provider: 04/26/19 14:03 Primary Care Provider: RAPHAEL LYNN PA [Primary Care Provider] - Follow up as needed Notes: Patient is a 43-year-old female presenting to the emergency department chief complaint back pain, trouble urinating and swelling in the right leg. Patient reports right lower extremity swelling and pain began yesterday. She also reports difficulty urinating but denies any dysuria or fevers. She does report some bilateral low back pain. Exam: Edema noted to right lower extremity. I have greeted and performed a rapid initial assessment of this patient. A comprehensive ED assessment and evaluation of the patient, analysis of test results and completion of the medical decision making process will be conducted by additional ED providers. Dictation of this chart was performed using voice recognition software; therefore, there may be some unintended grammatical err ors. TRAVEL OUTSIDE OF THE [place] IN LAST 30 DAYS: No - Related Data Allergies/Adverse Reactions: No Known Allergies Allergy (Verified 06/27/18 18:27) Past Medical History - Social History Frequency of alcohol use: None Drug Abuse: None Family history: CAD - Past Medical History Cardiac Medical History: Denies: Hx Coronary Artery Disease, Hx Heart Attack, Hx Hypertension Pulmonary Medical History: Denies: Hx Asthma, Hx Bronchitis, Hx COPD, Hx Pneumonia Neurological Medical History: Reports: Hx Migraine. Denies: Hx Cerebrovascular Accident, Hx Seizures Renal/ Medical History: Reports: Hx Ovarian Cysts - fibroids. Denies: Hx Peritoneal Dialysis GI Medical History: Reports: Hx Gastroesophageal Reflux Disease Musculoskeltal Medical History: Denies Hx Arthritis, Reports Hx Musculoskeletal Deformity, Reports Hx Musculoskeletal Trauma - right shoulder injury with bursitis and tennis elbow Past Surgical History: Reports: Hx Gynecologic Surgery - uterine fibroids, Hx Hysterectomy, Hx Oral Surgery, Hx Tonsillectomy - Immunizations Immunizations up to date: No Hx Diphtheria, Pertussis, Tetanus Vaccination: Yes History of Influenza Vaccine for 08/2017 - 01/2018 Season: Refused Physical Exam - Vital signs Vitals: Temp Pulse Resp BP Pulse Ox 98.6 F 76 18 129/72 H 98 04/26/19 13:17 04/26/19 13:17 04/26/19 13:17 04/26/19 13:17 04/26/19 13:17 Course - Vital Signs Vital signs: Temp Pulse Resp BP Pulse Ox 98.6 F 76 18 129/72 H 98 04/26/19 13:17 04/26/19 13:17 04/26/19 13:17 04/26/19 13:17 04/26/19 13:17 Doctor's Discharge - Discharge Referrals: RAPHAEL LYNN PA [Primary Care Provider] - Follow up as needed
[2019-04-26 15:20] LABS: ABSOLUTE BASOPHILS # (AUTO) 0.1 10^3/uL (0.0-0.2); ABSOLUTE EOSINOPHILS # (AUTO) 0.2 10^3/uL (0.0-0.6); ABSOLUTE LYMPHOCYTES (AUTO) 1.8 10^3/uL (0.5-4.7); ABSOLUTE MONOCYTES (AUTO) 0.4 10^3/uL (0.1-1.4); BASOPHILS % (AUTO) 0.9 % (0-2); EOSINOPHILS % (AUTO) 2.2 % (0-6); HEMATOCRIT 36.1 % (36.0-47.0); HEMOGLOBIN 11.3 g/dL (12.0-15.5); LYMPHOCYTES % (AUTO) 24.5 % (13-45); MEAN CORPUSCULAR HEMOGLOBIN 20.1 pg (27.0-33.4); MEAN CORPUSCULAR HGB CONC 31.4 g/dL (32.0-36.0); MEAN CORPUSCULAR VOLUME 64 fl (80-97); MONOCYTES % (AUTO) 5.4 % (3-13); PLATELET COUNT 324 10^3/uL (150-450); RED BLOOD COUNT 5.63 10^6/uL (3.72-5.28); RED CELL DISTRIBUTION WIDTH 14.5 % (11.5-14.0); TOTAL CELLS COUNTED % (AUTO) 100 %; WHITE BLOOD COUNT 7.5 10^3/uL (4.0-10.5)
[2019-04-26 15:26] LABS: APPEARANCE,URINE CLOUDY; BILIRUBIN,URINE NEGATIVE (NEGATIVE); COLOR,URINE YELLOW; GLUCOSE, URINE NEGATIVE (NEGATIVE); KETONES,URINE NEGATIVE (NEGATIVE); LEUKOCYTE ESTERASE,URINE NEGATIVE (NEGATIVE); NITRITE,URINE NEGATIVE (NEGATIVE); PROTEIN,URINE NEGATIVE (NEGATIVE); URINE SPECIFIC GRAVITY 1.015; UROBILINOGEN,URINE NEGATIVE mg/dL (<2.0)
[2019-04-26 15:40] LABS: ANISOCYTOSIS 1+; OVALOCYTES 1+; POLYCHROMASIA 1+; TARGET CELLS SLIGHT; TEAR DROP CELLS SLIGHT
[2019-04-26 15:41] LABS: PLATELET COMMENT ADEQUATE
[2019-04-26 15:42] LABS: ALANINE AMINOTRANSFERASE 36 U/L (9-52); ALBUMIN 4.8 g/dL (3.5-5.0); ALKALINE PHOSPHATASE 69 U/L (38-126); ANION GAP 7 (5-19); ASPARTATE AMINO TRANSFERASE 27 U/L (14-36); BILIRUBIN,DIRECT 0.3 mg/dL (0.0-0.4); BILIRUBIN,TOTAL 1.4 mg/dL (0.2-1.3); BLOOD UREA NITROGEN 14 mg/dL (7-20); CALCIUM 9.9 mg/dL (8.4-10.2); CARBON DIOXIDE 28 mmol/L (22-30); CHLORIDE 104 mmol/L (98-107); GLUCOSE 82 mg/dL (75-110); POTASSIUM 4.4 mmol/L (3.6-5.0); SODIUM 139.1 mmol/L (137-145); TOTAL PROTEIN 7.3 g/dL (6.3-8.2)
--- NOTE | 2019-04-26 17:05 | XCELERA REPORT ---
[address] [place] [facility] [id number] Lower Extremity Venous Evaluation Procedure: Color flow and duplex imaging of the veins of the right lower extremity as well as the left Common Femoral vein. Right Sided Venous Evaluation Normal vessel filling wall to wall, compression and augmentation as well as Colour flow down to the infrageniculate veins. Left Sided Venous Evaluation The left common femoral vein is fully compressible. Spontaneous and phasic flow is present in the left common femoral vein. Interpretation Summary No duplex evidence of DVT or obstruction in the right lower extremity nor in the left Common Femoral vein. Name: MINNIE FAIRCHILD Age: 43 yrs Gender: Female : 1975 Patient Status: Preadmit Patient Location: ER Study Date: 04/26/2019 04:10 PM Reason For Study: right lower ext swelling/pain Ordering Physician: BRUCE LINDER Performed By: Liliana Porter : BRUCE LINDER > Dre Mckay
--- NOTE | 2019-04-26 18:51 | ER Document Report ---
ED General - General Chief Complaint: Leg Swelling Stated Complaint: BACK PAIN,DIFFICULTY URINATING Time Seen by Provider: 04/26/19 14:03 Primary Care Provider: RAPHAEL LYNN PA [Primary Care Provider] - Follow up as needed HOMERO WEST MD [EMERITUS] - Follow up tomorrow Mode of Arrival: Ambulatory Information source: Patient Notes: This is a 43-year-old female who presents to the emergency room with right lower extremity swelling on and off for the past year after having a hysterectomy. She also reports some right sided back pain. She also states she has had dark urine and difficulty urinating. She denies fever. Patient denies any saddle anesthesia or lower muscle use. TRAVEL OUTSIDE OF THE [place] IN LAST 30 DAYS: No - HPI Onset: Last week Onset/Duration: Gradual Quality of pain: Dull Severity: Mild Pain Level: 1 Associated symptoms: denies: Chest pain, Fever, Shortness of breath Exacerbated by: Denies Relieved by: Denies Similar symptoms previously: Yes Recently seen / treated by doctor: Yes - Related Data Allergies/Adverse Reactions: No Known Allergies Allergy (Verified 06/27/18 18:27) Past Medical History - General Information source: Patient - Social History Smoking Status: Former Smoker Cigarette use (# per day): No Chew tobacco use (# tins/day): No Frequency of alcohol use: None Drug Abuse: None Lives with: Family Family History: Arthritis, CAD, DM, Hyperlipidemia, Hypertension Patient has suicidal ideation: No Patient has homicidal ideation: No - Past Medical History Cardiac Medical History: Denies: Hx Coronary Artery Disease, Hx Heart Attack, Hx Hypertension Pulmonary Medical History: Denies: Hx Asthma, Hx Bronchitis, Hx COPD, Hx Pneumonia Neurological Medical History: Reports: Hx Migraine. Denies: Hx Cerebrovascular Accident, Hx Seizures Renal/ Medical History: Reports: Hx Ovarian Cysts - fibroids. Denies: Hx Peritoneal Dialysis GI Medical History: Reports: Hx Gastroesophageal Reflux Disease Musculoskeletal Medical History: Denies Hx Arthritis, Reports Hx Musculoskeletal Deformity, Reports Hx Musculoskeletal Trauma - right shoulder injury with bursitis and tennis elbow Past Surgical History: Reports: Hx Gynecologic Surgery - uterine fibroids, Hx Hysterectomy, Hx Oral Surgery, Hx Tonsillectomy - Immunizations Immunizations up to date: No Hx Diphtheria, Pertussis, Tetanus Vaccination: Yes Review of Systems - Review of Systems Constitutional: denies: Chills, Fever EENT: No symptoms reported Cardiovascular: Edema Respiratory: No symptoms reported Gastrointestinal: No symptoms reported Genitourinary: No symptoms reported Female Genitourinary: No symptoms reported Musculoskeletal: See HPI Skin: No symptoms reported Hematologic/Lymphatic: No symptoms reported Neurological/Psychological: No symptoms reported Physical Exam - Vital signs Vitals: Temp Pulse Resp BP Pulse Ox 98.6 F 76 18 129/72 H 98 04/26/19 13:17 04/26/19 13:17 04/26/19 13:17 04/26/19 13:17 04/26/19 13:17 Notes: Physical exam: GENERAL: Patient is alert and oriented x3, no acute distress HEAD: Atraumatic, normocephalic. EYES: Pupils equal round and reactive to light, extraocular movements intact, sc jesús anicteric, conjunctiva are normal. ENT: Nares patent, oropharynx clear without exudates. Moist mucous membranes. NECK: Normal range of motion, supple LUNGS: Breath sounds clear to auscultation bilaterally and equal. No wheezes rales or rhonchi. HEART: Regular rate and rhythm without murmurs, rubs or gallops. ABDOMEN: Soft, normoactive bowel sounds. No tenderness to palpation. No gua rding, no rebound. No masses appreciated. Back: Patient does have right CVA tenderness without any masses. Patient's cervical, thoracic and lumbar spine is nontender nervous without any crepitus or step-offs. EXTREMITIES: Normal range of motion, she has trace edema to the right lower extremity. Distal cap refill is good. Distal pulses is good. NEUROLOGICAL: Cranial nerves II through XII grossly intact. Normal speech, moving all extremities. No weakness to the lower extremities. No numbness to the lower extremities. PSYCH: Normal mood, normal affect. SKIN: Warm, Dry, normal turgor, no rashes or lesions noted. Course - Vital Signs Vital signs: Temp Pulse Resp BP Pulse Ox 98.3 F 56 L 18 107/71 97 04/26/19 20:40 04/26/19 20:40 04/26/19 20:40 04/26/19 20:40 04/26/19 20:40 - Laboratory Result Diagrams: 04/26/19 14:35 04/26/19 14:35 Laboratory results interpreted by me: 04/26/19 04/26/19 04/26/19 14:35 14:35 14:35 RBC 5.63 H Hgb 11.3 L MCV 64 L MCH 20.1 L MCHC 31.4 L RDW 14.5 H Total Bilirubin 1.4 H Urine Blood SMALL H - Diagnostic Test Radiology reviewed: Image reviewed, Reports reviewed - The pelvic ultrasound shows a large complex cystic lesion of the right ovary. They recommended follow-up ultrasound in 6 to 12 weeks. Discharge - Discharge Clinical Impression: Ovarian cyst, Asymmetric edema Condition: Stable Disposition: HOME, SELF-CARE Additional Instructions: As we discussed, the ultrasound does show bilateral ovarian cysts. The right ovary cyst is large in size and the radiologist is recommended that you repeat the pelvic ultrasound in 6 to 12 weeks. They also recommend that if there is no resolution of the cyst at that time, that you should be seen for gynecologic surgical evaluation. Given that you are followed by a materials management manager, I would recommend following up with that doctor as planned on May 17. I would call the office and tell them that you ended up getting a pelvic ultrasound while you were in the emergency room. When you see the PLATE SHEAR OPERATOR doctor, bring a copy of today's test with you. If you are going to be referred to [facility] [place], when you do go for that evaluation, bring a copy of all of today's lab tests, ultrasound and CT reports as well as the studies on the discs. So in summary, if you are going to [facility], have these things on your person when you go. As far as the swelling to the right lower extremity, the ultrasound showed no evidence of blood clot. Take ibuprofen for pain. Follow-up with Dr. West as planned. Return to the emergency room for worsening swelling, worsening pain or any concerns or getting worse. Referrals: RAPHAEL LYNN PA [Primary Care Provider] - Follow up as needed HOMERO WEST MD [EMERITUS] - Follow up tomorrow
--- NOTE | 2019-04-26 19:39 | RADIOLOGY REPORT (SQ) ---
EXAM DESCRIPTION: CT ABD/PELVIS NO ORAL OR IV COMPLETED DATE/TIME: 04/26/2019 7:08 pm REASON FOR STUDY: right CVA tenderness COMPARISON: 01/13/2018 TECHNIQUE: CT scan of the abdomen and pelvis performed without intravenous or oral contrast. Images reviewed with lung, soft tissue, and bone windows. Reconstructed coronal and sagittal MPR images revi ewed. All images stored on PACS. All CT scanners at this facility use dose modulation, iterative reconstruction, and/or weight based d osing when appropriate to reduce radiation dose to as low as reasonably achievable (ALARA). [facility]: Dose Right [facility]: CareDose [facility]: Dose Right [facility]: Teradose 4D [facility]: [employer] RADIATION DOSE: CT Rad equipment meets quality standard of care and radiation dose reduction techniq ues were employed. CTDIvol: 14.4 mGy. DLP: 776 mGy-cm.mGy. LIMITATIONS: None. FINDINGS: LOWER CHEST: No significant findings. No nodules or infiltrates. NON-CONTRASTED LIVER, SPLEEN, ADRENALS: Evaluation limited by lack of IV contrast. No identified sign ificant masses. PANCREAS: No masses. No peripancreatic inflammatory changes. GALLBLADDER: No identified stones by CT criteria. No inflammatory changes to suggest cholecystitis. RIGHT KIDNEY AND URETER: No suspicious masses. Assessment limited by lack of IV contrast. No signif icant calcifications. No hydronephrosis or hydroureter. LEFT KIDNEY AND URETER: No suspicious masses. Assessment limited by lack of IV contrast. No signifi cant calcifications. No hydronephrosis or hydroureter. AORTA AND RETROPERITONEUM: No aneurysm. No retroperitoneal masses or adenopathy. BOWEL AND PERITONEAL CAVITY: No obvious masses or inflammatory changes. No free fluid. APPENDIX: Normal. PELVIS, BLADDER, AND ABDOMINAL WALL:Complex cystic lesion in the right adnexum. The largest componen t is 6.7 cm and appears to be a simple cyst. Adjacent cystic lesion slightly smaller. These are eit her multiple right ovarian cyst or a complex cyst. There is also a 3.5 cm cyst in the left ovary. BONES: No significant findings. OTHER: No other significant finding. IMPRESSION: Large complex cystic mass or multiple cysts in the right ovary. The largest component i s 7.6 cm. 3.5 cm cysts in the left ovary. COMMENT: Recommend pelvic ultrasound to determine if these are multiple simple cysts or a large comp nancy cystic mass. Quality ID # [id number]: Final reports with documentation of one or more dose reduction techniques (e.g., Au tomated exposure control, adjustment of the mA and/or kV according to patient size, use of iterative reconstruction technique) TECHNICAL DOCUMENTATION: JOB ID: [id number] [employer]- All Rights Reserved Reading location - IP/workstation name: [email or web address]
--- NOTE | 2019-04-26 22:10 | RADIOLOGY REPORT (SQ) ---
EXAM DESCRIPTION: US PELVIS TRANSVAGINAL COMPLETED DATE/TME: 04/26/2019 20:24 CLINICAL HISTORY: 43 years, Female, right adnexal mass COMPARISON: None. TECHNIQUE: Axial 2-D grayscale images of the pelvis were obtained. Doppler was utilized. LIMITATIONS: None. FINDINGS: The uterus is absent. Overall, the right ovary appears to measure 7.5 x 5.2 x 6.4 cm in size. It appears to demonstrates normal low resistance arterial waveforms as well as venous flow. However, the right ovary appears to be completely replaced by either a single large septated cystic lesion or two adjacent cystic lesions. The larger of the two cystic areas measures 6.0 x 3.4 x 4.1 cm in size; whereas, the smaller of the cystic areas measures 5.5 x 2.3 x 2.7 cm in size. Left ovary measures 3.8 x 3.4 x 4.0 cm in size. It demonstrates normal low resistance arterial waveforms. In addition, it appears to contain a hypoechoic lesion measuring 2.7 x 2.8 x 2.2 cm in size, likely indicative of a functional cyst. IMPRESSION: Right ovary is either completely replaced by a large complex cystic lesion with thickened internal septation or two adjacent cysts, as above described. As such, these findings are indeterminate. Follow-up pelvic ultrasound in 6-12 weeks is recommended to document resolution of these findings. If these findings persist, then further assessment with surgical evaluation should be considered. At that time, the additional left ovarian cystic lesion can be reassessed (which most likely represents a functional cyst). copyright 2010 [employer]- All Rights Reserved
[2019-04-26 23:19] VITALS: BP 109/67
== END 2019-04-26 23:19 | disposition home or self-care (01) ==
LOC: ER 13:12
DX: N83.201 Unspecified ovarian cyst, right side (principal); R60.9 Edema, unspecified; M54.9 Dorsalgia, unspecified; R39.198 Other difficulties with micturition; Z87.891 Personal history of nicotine dependence
CPT/HCPCS: 36415; 74176; 76830; 80053; 81001; 85025; 87086; 93971; 93976; 99284

== ENCOUNTER → 2019-05-31 | Outpatient (CLI) | payer BC ==
[2019-05-31 09:44] LABS: ABSOLUTE BASOPHILS # (AUTO) 0.1 10^3/uL (0.0-0.2); ABSOLUTE EOSINOPHILS # (AUTO) 0.2 10^3/uL (0.0-0.6); ABSOLUTE LYMPHOCYTES (AUTO) 1.5 10^3/uL (0.5-4.7); ABSOLUTE MONOCYTES (AUTO) 0.4 10^3/uL (0.1-1.4); ABSOLUTE NEUT (AUTO) 3.4 10^3/uL (1.7-8.2); BASOPHILS % (AUTO) 1.2 % (0-2); HEMATOCRIT 39.2 % (36.0-47.0); HEMOGLOBIN 12.1 g/dL (12.0-15.5); LYMPHOCYTES % (AUTO) 27.1 % (13-45); MEAN CORPUSCULAR HGB CONC 30.8 g/dL (32.0-36.0); MEAN CORPUSCULAR VOLUME 65 fl (80-97); MONOCYTES % (AUTO) 6.5 % (3-13); PLATELET COUNT 327 10^3/uL (150-450); RED BLOOD COUNT 6.04 10^6/uL (3.72-5.28); RED CELL DISTRIBUTION WIDTH 14.8 % (11.5-14.0); SEGMENTED NEUTROPHILS % (AUTO) 61.2 % (42-78); TOTAL CELLS COUNTED % (AUTO) 100 %; WHITE BLOOD COUNT 5.6 10^3/uL (4.0-10.5)
[2019-05-31 10:15] LABS: ALANINE AMINOTRANSFERASE 30 U/L (9-52); ALBUMIN 4.4 g/dL (3.5-5.0); ALKALINE PHOSPHATASE 72 U/L (38-126); AMYLASE 37 U/L (30-110); ANION GAP 8 (5-19); ASPARTATE AMINO TRANSFERASE 29 U/L (14-36); BILIRUBIN,DIRECT 0.3 mg/dL (0.0-0.4); BILIRUBIN,TOTAL 0.9 mg/dL (0.2-1.3); BLOOD UREA NITROGEN 16 mg/dL (7-20); CALCIUM 9.2 mg/dL (8.4-10.2); CARBON DIOXIDE 28 mmol/L (22-30); CHLORIDE 104 mmol/L (98-107); GLUCOSE 102 mg/dL (75-110); POTASSIUM 4.8 mmol/L (3.6-5.0)
[2019-05-31 10:33] LABS: ANISOCYTOSIS SLIGHT; BURR CELLS SLIGHT; HYPOCHROMASIA 1+; OVALOCYTES SLIGHT
[2019-05-31 10:34] LABS: PLATELET COMMENT ADEQUATE; POLYCHROMASIA SLIGHT; TEAR DROP CELLS SLIGHT
== END ==
LOC: OD 08:15
PROVIDERS: ATTEND Specialist
DX: N83.201 Unspecified ovarian cyst, right side (principal); R10.0 Acute abdomen
CPT/HCPCS: 36415; 80053; 82150; 85025; 86304

== ENCOUNTER 2019-11-29 05:41 | Emergency (ER) | payer BC ==
--- NOTE | 2019-11-29 06:12 | ER Document Report ---
ED ENT - General Chief Complaint: Sore Throat Stated Complaint: CHEST PAINS Time Seen by Provider: 11/29/19 06:02 Primary Care Provider: HOMERO CORNELL MD [EMERITUS] - Follow up as needed Notes: HPI: 44-year-old female who presents today with the onset around 2 days ago of some runny nose, sore throat, congestion, and now losing her voice with a nonproductive cough. No fevers or diarrhea. One bout of vomiting. She is able to breathe and swallow but states the sore throat is what is most troublesome. Patient also states some chest discomfort with coughing. No calf pain or leg swelling. No aggravating relieving factors. ROS: See HPI All other review of systems reviewed and otherwise negative Reviewed vital signs and nursing note as charted by RN. PHYSICAL EXAM: CONSTITUTIONAL: Alert and oriented and responds appropriately to questions. Well-appearing; well-nourished HEAD: Normocephalic; atraumatic EYES: PERRL; Conjunctivae clear, sclerae non-icteric ENT: Normal nose; bilateral copious nonpurulent nasal rhinorrhea; moist mucous membranes; pharynx with minimal posterior erythema with no peritonsillar swelling with a midline nonswollen uvula NECK: Supple without meningismus; non-tender; no cervical lymphadenopathy, no masses CARD: Regular rate and rhythm; no murmurs; symmetric distal pulses RESP: Normal chest excursion without splinting or tachypnea; breath sounds clear and equal bilaterally; no wheezing or rhonchi ABD/GI: Normal bowel sounds; non-distended; soft, non-tender to deep palpation of all 4 quadrants of the abdomen; no palpable organomegaly or masses EXT: Normal ROM in all joints; non-tender to palpation; no edema SKIN: No acute lesions noted NEURO: CN 2-12 intact; 5/5 bilateral upper and lower extremity strength with sensation intact to light touch PSYCH: The patient's mood and manner are appropriate. Grooming and personal hygiene are appropriate. TRAVEL OUTSIDE OF THE [place] IN LAST 30 DAYS: No - Related Data Allergies/Adverse Reactions: No Known Allergies Allergy (Verified 06/27/18 18:27) Past Medical History - Social History Smoking Status: Former Smoker Chew tobacco use (# tins/day): No Frequency of alcohol use: None Drug Abuse: None Family History: Arthritis, CAD, DM, Hyperlipidemia, Hypertension Patient has suicidal ideation: No Patient has homicidal ideation: No - Past Medical History Cardiac Medical History: Denies: Hx Coronary Artery Disease, Hx Heart Attack, Hx Hypertension Pulmonary Medical History: Denies: Hx Asthma, Hx Bronchitis, Hx COPD, Hx Pneumonia Neurological Medical History: Reports: Hx Migraine. Denies: Hx Cerebrovascular Accident, Hx Seizures Renal/ Medical History: Reports: Hx Ovarian Cysts - fibroids. Denies: Hx Peritoneal Dialysis GI Medical History: Reports: Hx Gastroesophageal Reflux Disease Musculoskeletal Medical History: Denies Hx Arthritis, Reports Hx Musculoskeletal Deformity, Reports Hx Musculoskeletal Trauma - right shoulder injury with bur sitis and tennis elbow Past Surgical History: Reports: Hx Gynecologic Surgery - uterine fibroids, Hx Hysterectomy, Hx Oral Surgery, Hx Tonsillectomy - Immunizations Immunizations up to date: No Hx Diphtheria, Pertussis, Tetanus Vaccination: Yes Physical Exam - Vital signs Vitals: Temp Pulse Resp BP Pulse Ox 98.0 F 94 16 138/81 H 98 11/29/19 06:11 11/29/19 06:11 11/29/19 06:11 11/29/19 06:11 11/29/19 06:11 Course - Re-evaluation Re-evalutation: 11/29/19 06:14 EKG shows a heart of 86, normal sinus rhythm, normal axis, poor R wave progression, no ST elevation or depression. Given the above history and physical, I do believe that this is most likely an upper respiratory tract infection given the runny nose, congestion, laryngitis, and sore throat. Throat exam is fairly unremarkable with very minimal to no posterior pharyngeal erythema. No peritonsillar swelling with a midline nonswollen uvula. Lungs are clear to auscultation otherwise. 11/29/19 06:40 Rapid strep is negative. No change in exam. Given the constellation of symptoms with a negative strep, with the onset greater than 48 hours ago, I do not see the utility in ordering an influenza test. Patient has no small infants at home and no extreme elderly. Nobody is currently on chemotherapy in the household. Patient will be discharged home with [id number] medication instructions. - Vital Signs Vital signs: Temp Pulse Resp BP Pulse Ox 98.0 F 94 16 138/81 H 98 11/29/19 06:11 11/29/19 06:11 11/29/19 06:11 11/29/19 06:11 11/29/19 06:11 Discharge - Discharge Clinical Impression: Runny nose, Cough, Sore throat Condition: Good Disposition: HOME, SELF-CARE Additional Instructions: Come back immediately with any difficulty breathing or swallowing, worsening cough, shortness of breath, leg swelling, or any other acute problems. Please make sure that you take the [id number] medications we have discussed and follow-up with your primary care physician for reassessment. Referrals: HOMERO CORNELL MD [EMERITUS] - Follow up as needed
[2019-11-29 07:16] VITALS: BP 146/68
--- NOTE | 2019-11-29 07:43 | EKG REPORT ---
SEVERITY:- BORDERLINE ECG - SINUS RHYTHM BORDERLINE R WAVE PROGRESSION, ANTERIOR LEADS : Confirmed by: Reynold Guzmán MD 29-Nov-2019 07:43:12
== END 2019-11-29 07:16 | disposition home or self-care (01) ==
LOC: ER 05:41
DX: J02.9 Acute pharyngitis, unspecified (principal); R09.89 Other specified symptoms and signs involving the circulatory and respiratory systems; R05 Cough; J04.0 Acute laryngitis; R07.9 Chest pain, unspecified; J34.89 Other specified disorders of nose and nasal sinuses; Z87.891 Personal history of nicotine dependence
CPT/HCPCS: 87070; 87880; 93005; 93010; 99283